=== PATIENT | male | born 1955 | race Caucasian/White ===

== ENCOUNTER 2017-03-28 10:35 | Inpatient (IN) | payer MEDICAID ==
[2017-03-28] VITALS (19 sets, daily range): BP systolic 81–106; BP diastolic 45–69; PULSE 62–125; RESP 13–18; TEMP 98–103.1; O2SAT 95–99
[~2017-03-28] VITALS: Ht 190.5 cm; Wt 80.4 kg
[~2017-03-28 10:35] MED LIST: PERC7.5T13 PO
[2017-03-28] MEDS ORDERED: IBUP-1129 PO (11:17)
[2017-03-28] MEDS ORDERED: metroNIDAZOLE 500 MG INJ 100 ML IV STA (11:26)
[2017-03-28] MEDS ORDERED: AZTREONAM INJ 2,000 MG in SODIUM CHLORIDE 0.9% INJ 100 ML IV STA (11:26)
[2017-03-28] MEDS ORDERED: VANCOMYCIN INJ 1,000 MG in SODIUM CHLOR 0.9% 250 ML INJ 250 ML IV STA (11:26)
--- NOTE | 2017-03-28 11:28 | PD ---
HPI Chief Complaint: Fever Time Seen by Provider: 11:20 Travel History International Travel<30 days: No Contact w/Intl Traveler<30days: No Traveled to known affect area: No History of Present Illness HPI Patient presents with complaints of fever and lower abdominal pain, 7 out of 10. Reports normal urination. Reports a history of stage II rectal cancer in 2011, underwent resection however did not receive any further treatment. Recently had a perforation of his bowels in September with placement of a colostomy bag by Dr. Mendez. Reports at that time he had C. difficile infection with a particular odor, treated with antibiotics which resolved. Patient reports rectal leakage and leakage around his colostomy bag with similar odor. Smokes one pack per day. Denies alcohol or illicit drug use. Allergy to penicillin. PFSH Past Medical History Cancer: Yes (RECTAL dx 2012 states stage 2) Cardiovascular Problems: No Chemotherapy: No Diabetes: No Endocrine: No Gastrointestinal Disorders: Yes (colon tumor, HEP C) Genitourinary: No Hepatitis: Yes (HEPATITIS C ) Hiatal Hernia: No Immune Disorder: No Implanted Vascular Access Dvce: No Musculoskeletal: No Neurologic: No Psychiatric: No Reproductive: No Respiratory: No Radiation Therapy: No Thyroid Disease: No Tetanus Vaccination: < 5 Years Influenza Vaccination: No Past Surgical History Abdominal Surgery: Yes (POLYP REMOVED OCTOBER 2011 ;ESC. RECTAL CANCER/ILEOSTOMY ) Cardiac Surgery: No Ear Surgery: No Endocrine Surgery: No Eye Surgery: No Genitourinary Surgery: No Oral Surgery: No Pacemaker: No Thoracic Surgery: No Other Surgery: Yes (sep 2015 colostomy placed r/t cancer, hx reversal ileostomy ) Social History Alcohol Use: No Tobacco Use: Yes (1 ppd cigs) Substance Use: No Allergies-Medications (Allergen,Severity, Reaction): Coded Allergies: penicillin G (Unverified Allergy, Unknown, unknown reaction, 03/28/17) Reported Meds & Prescriptions Reported Meds & Active Scripts Active Reported Motrin Ib (Ibuprofen) 200 Mg Tablet 800 Mg PO Q12HR PRN Review of Systems General / Constitutional: Positive: Fever Eyes: No: Visual changes HENT: No: Headaches Cardiovascular: No: Chest Pain or Discomfort Respiratory: No: Shortness of Breath Gastrointestinal: Positive: Abdominal Pain Genitourinary: No: Dysuria Musculoskeletal: No: Pain Skin: No Rash Neurologic: No: Weakness Psychiatric: No: Depression Endocrine: No: Polydipsia Hematologic/Lymphatic: No: Easy Bruising Physical Exam Narrative GENERAL: Well-nourished, well-developed patient. SKIN: Focused skin assessment warm/dry. HEAD: Normocephalic. EYES: No scleral icterus. No injection or drainage. NECK: Supple, trachea midline. No JVD or lymphadenopathy. CARDIOVASCULAR: Regular rate and rhythm without murmurs, gallops, or rubs. RESPIRATORY: Breath sounds equal bilaterally. No accessory muscle use. GASTROINTESTINAL: Abdomen soft, diffusely tender bilateral lower quadrants, nondistended. Colostomy is intact without cellulitic changes noted MUSCULOSKELETAL: No cyanosis, or edema. BACK: Nontender without obvious deformity. No CVA tenderness. Data Data Last Documented VS Vital Signs Date Time Temp Pulse Resp B/P (MAP) Pulse Ox O2 Delivery O2 Flow Rate FiO2 03/28/17 14:30 99.1 82 16 100/64 (76) 99 Room Air Orders Orders Complete Blood Count With Diff (03/28/17 11:20) Comprehensive Metabolic Panel (03/28/17 11:20) Lipase (03/28/17 11:20) Lactic Acid (03/28/17 11:20) Prothrombin Time / Inr (Pt) (03/28/17 11:20) Act Partial Throm Time (Ptt) (03/28/17 11:20) Urinalysis - C+S If Indicated (03/28/17 11:20) Ct Abd/Pel W Iv Contrast(Rout) (03/28/17 11:20) Iv Access Insert/Monitor (03/28/17 11:20) Ecg Monitoring (03/28/17 11:20) Oximetry (03/28/17 11:20) Sodium Chloride 0.9% Flush (Ns Flush) (03/28/17 11:30) Electrocardiogram (03/28/17 11:20) Lactic Acid Sepsis Protocol (03/28/17 11:20) Blood Culture (03/28/17 11:20) Acetaminophen (Tylenol) (03/28/17 11:30) Vancomycin Inj (Vancomycin Inj) (03/28/17 11:26) Aztreonam Inj (Azactam Inj) (03/28/17 11:26) Metronidazole 500 Mg Inj (Flagyl 500 Mg (03/28/17 11:26) Sodium Chlor 0.9% 1000 Ml Inj (Ns 1000 M (03/28/17 11:45) Chest, Single Ap (03/28/17 ) Admit Order (Ed Use Only) (03/28/17 ) ^ Saline Lock (03/28/17 14:31) Resp Oxygen Joseph C Titrat 1-4 L (03/28/17 ) Notify Dr: Other (03/28/17 14:31) Vital Signs (Adult) Q4H (03/28/17 14:31) Activity Oob With Assistance (03/28/17 14:31) ^ Saline Lock (03/28/17 14:31) Resp Oxygen Joseph C Titrat 1-4 L (03/28/17 ) Notify Dr: Other (03/28/17 14:31) Ondansetron Inj (Zofran Inj) (03/28/17 14:45) Acetaminophen (Tylenol) (03/28/17 14:45) Acetaminophen Supp (Tylenol Supp) (03/28/17 14:45) Labs Laboratory Tests Test 03/28/17 11:55 03/28/17 12:00 Urine Collection Type CLEAN CATCH Urine Color YELLOW Urine Turbidity CLEAR Urine pH 6.0 Urine Specific [place] 1.014 Urine Protein TRACE mg/dL Urine Glucose (UA) NEG mg/dL Urine Ketones NEG mg/dL Urine Occult Blood SMALL Urine Nitrite NEG Urine Bilirubin NEG Urine Leukocyte Esterase NEG Urine RBC 10-14 /hpf Urine Squamous Epithelial Cells 0-5 /hpf Microscopic Urinalysis Comment CULT NOT INDICATED Urine Collection Time 11:55 White Blood Count 12.3 TH/MM3 Red Blood Count 3.81 MIL/MM3 Hemoglobin 11.1 GM/DL Hematocrit 32.4 % Mean Corpuscular Volume 85.2 FL Mean Corpuscular Hemoglobin 29.0 PG Mean Corpuscular Hemoglobin Concent 34.1 % Red Cell Distribution Width 12.1 % Platelet Count 275 TH/MM3 Mean Platelet Volume 7.1 FL Neutrophils (%) (Auto) 85.6 % Lymphocytes (%) (Auto) 6.8 % Monocytes (%) (Auto) 7.2 % Eosinophils (%) (Auto) 0.0 % Basophils (%) (Auto) 0.4 % Neutrophils # (Auto) 10.6 TH/MM3 Lymphocytes # (Auto) 0.8 TH/MM3 Monocytes # (Auto) 0.9 TH/MM3 Eosinophils # (Auto) 0.0 TH/MM3 Basophils # (Auto) 0.0 TH/MM3 CBC Comment DIFF FINAL Differential Comment Prothrombin Time 13.4 SEC Prothromb Time International Ratio 1.2 RATIO Activated Partial Thromboplast Time 31.3 SEC Blood Urea Nitrogen 15 MG/DL Creatinine 1.10 MG/DL Random Glucose 100 MG/DL Total Protein 7.9 GM/DL Albumin 2.6 GM/DL Calcium Level 8.3 MG/DL Alkaline Phosphatase 55 U/L Aspartate Amino Transf (AST/SGOT) 23 U/L Alanine Aminotransferase (ALT/SGPT) 17 U/L Total Bilirubin 0.4 MG/DL Sodium Level 132 MEQ/L Potassium Level 3.9 MEQ/L Chloride Level 98 MEQ/L Carbon Dioxide Level 27.9 MEQ/L Anion Gap 6 MEQ/L Estimat Glomerular Filtration Rate 69 ML/MIN Lactic Acid Level 1.0 mmol/L Lipase 73 U/L [facility] Medical Decision Making Medical Screen Exam Complete: Yes Emergency Medical Condition: Yes Differential Diagnosis Intestinal perforation, sepsis, UTI, fever unknown origin, rectal cancer progression, e-coli infection Narrative Course Assessment and plan discussed with patient and at bedside. EKG revealed sinus tachycardia rate of 106. Last 72 hours Impressions Abdomen/Pelvis CT 03/28/17 1120 Signed Impressions: Service Date/Time: Tuesday, March 28, 2017 12:43 - CONCLUSION: 1. Mild hydronephrosis with hydroureter and mild distention of the urinary bladder. 2. Wall thickening of the sigmoid colon and rectum with perirectal and pericolonic inflammatory changes. Soft tissue prominence and inflammatory changes in the presacral space. 3. Left lower quadrant ostomy. Lack of oral contrast limits evaluation. Yogi Berry MD Chest X-Ray 03/28/17 0000 Signed Impressions: Service Date/Time: Tuesday, March 28, 2017 14:14 - CONCLUSION: 1. Questionable nodule left apex. Recommend PA and lateral views of the chest. 2. No consolidation. Yogi Berry MD Sepsis Criteria SIRS Criteria (2 or more): Temp > 100.9 or < 96.8, Heart rate over 90, WBC > 35440, < 4000 or > 10% bands Sepsis Criteria (SIRS+source): Infect source susp/known Physician Communication Physician Communication Spoke to Dr Jaylene Tesfaye who is familiar with this patient and Dr. Wood who are both in agreement will admit. Diagnosis Primary Impression: Abdominal pain Additional Impression: Fever Leonardo Ritchie MD Mar 28, 2017 11:28
[2017-03-28] MEDS ORDERED: ACETAMINOPHEN 325 MG TAB PO ONE (11:30)
[2017-03-28] MEDS ORDERED: SODIUM CHLOR 0.9% 1000 ML INJ 1,000 ML IV ONE ×2 (11:45→15:45)
[2017-03-28 12:08] LABS: AUTOMATED NEUTROPHIL # 10.6 TH/MM3 (1.8-7.7); BASOPHIL % 0.4 % (0.0-2.0); HEMATOCRIT 32.4 % (39.0-51.0); LYMPH % 6.8 % (9.0-44.0); LYMPHOCYTE # 0.8 TH/MM3 (1.0-4.8); MEAN CELL VOLUME 85.2 FL (80.0-100.0); MEAN CORPUSCULAR HGB CONC 34.1 % (32.0-36.0); MONO % 7.2 % (0.0-8.0); NEUT % 85.6 % (16.0-70.0); PLATELET COUNT 275 TH/MM3 (150-450); RED BLOOD COUNT 3.81 MIL/MM3 (4.50-5.90); RED CELL DISTRIBUTION WIDTH 12.1 % (11.6-17.2); WHITE BLOOD COUNT 12.3 TH/MM3 (4.0-11.0)
[2017-03-28 12:10] LABS: HEMO FLAGS DIFF FINAL
[2017-03-28] MEDS: SODIUM CHLORIDE 0.9% FLUSH 10 ML FLUSH IV FLUSH PRN ×6 (12:11→17:57)
[2017-03-28 12:20] LABS: CHLORIDE 98 MEQ/L (98-107); POTASSIUM 3.9 MEQ/L (3.5-5.1); SODIUM (NA) 132 MEQ/L (136-145)
[2017-03-28 12:21] LABS: BLOOD, URINE SMALL (NEG); GLUCOSE,URINE NEG (NEG); KETONE, URINE NEG (NEG); NITRITE,URINE NEG (NEG)
[2017-03-28 12:24] LABS: ANION GAP 6 MEQ/L (5-15); BICARBONATE 27.9 MEQ/L (21.0-32.0); BLOOD UREA NITROGEN 15 MG/DL (7-18)
[2017-03-28 12:26] LABS: ALT (GPT) 17 U/L (12-78); AST (GOT) 23 U/L (15-37)
[2017-03-28 12:27] LABS: GLOMERULAR FILTRATION RATE 69 ML/MIN (>89)
[2017-03-28 12:28] LABS: TOTAL BILIRUBIN ADULT 0.4 MG/DL (0.2-1.0)
[2017-03-28 12:29] LABS: ALKALINE PHOSPHATASE 55 U/L (45-117); APTT (PATIENT) 31.3 SEC (24.3-30.1); INTERNATIONAL NORMALIZED RATIO 1.2 RATIO; PROTHROMBIN TIME - PATIENT 13.4 SEC (9.8-11.6)
[2017-03-28] MEDS ORDERED: IOHEXOL 350 MG/ML 10 ML VIAL (for RAD DIAG) IV ONE (12:30)
[2017-03-28 12:35] LABS: METHOD OF COLLECTION CLEAN CATCH; URINE COLOR YELLOW (YELLW/STRAW)
[2017-03-28 12:36] LABS: COMMENT (UR) CULT NOT INDICATED; CULTURE IF INDICATED CULT NOT INDICATED; SQUAMOUS EPITHELIAL CELL URINE 0-5 /hpf (0-5)
--- NOTE | 2017-03-28 13:03 | RADRPT ---
EXAM DATE/TIME: 03/28/2017 12:43 [facility] COMPARISON: No previous studies available for comparison. INDICATIONS : Fever abdominal pain, bowel leakage. IV CONTRAST: 96 cc Omnipaque 350 (iohexol) IV ORAL CONTRAST: No oral contrast ingested. RADIATION DOSE: 7.56 CTDIvol (mGy) MEDICAL HISTORY : Hepatitis C. Carcinoma, rectal. SURGICAL HISTORY : [place] resection, ileostomy. ENCOUNTER: Initial ACUITY: 2 days PAIN SCALE: 6/10 LOCATION: Bilateral lower abdomen. TECHNIQUE: Volumetric scanning of the abdomen and pelvis was performed. Using automated exposure control and ad justment of the mA and/or kV according to patient size, radiation dose was kept as low as reasonably achievable to obtain optimal diagnostic quality images. DICOM format image data is available electro nically for review and comparison. FINDINGS: LOWER LUNGS: The visualized lower lungs are clear. LIVER: Homogeneous density without lesion. There is no dilation of the biliary tree. No calcified gallston es. SPLEEN: Normal size without lesion. PANCREAS: Within normal limits. KIDNEYS: Normal in size and shape. There is mild bilateral hydronephrosis. Hydroureter. ADRENAL GLANDS: Within normal limits. VASCULAR: There is no aortic aneurysm. BOWEL/MESENTERY: Wall thickening of the sigmoid colon with adjacent inflammatory changes. Inflammatory changes in the perirectal fat and presacral space. Left lower quadrant ostomy. Lack of oral contrast limits evaluati on. ABDOMINAL WALL: Within normal limits. RETROPERITONEUM: There is no lymphadenopathy. BLADDER: Mild distention. No wall thickening or mass. REPRODUCTIVE: Within normal limits. INGUINAL: There is no lymphadenopathy or hernia. MUSCULOSKELETAL: Within normal limits for patient age. CONCLUSION: 1. Mild hydronephrosis with hydroureter and mild distention of the urinary bladder. 2. Wall thickening of the sigmoid colon and rectum with perirectal and pericolonic inflammatory johnson es. Soft tissue prominence and inflammatory changes in the presacral space. 3. Left lower quadrant ostomy. Lack of oral contrast limits evaluation. Yogi Berry MD on March 28, 2017 at 12:58 Board Certified Radiologist. This report was verified electronically.
--- NOTE | 2017-03-28 14:30 | RADRPT ---
EXAM DATE/TIME: 03/28/2017 14:14 [facility] COMPARISON: No previous studies available for comparison. INDICATIONS : Cough, congestion, fever since today. MEDICAL HISTORY : None. SURGICAL HISTORY : None. ENCOUNTER: Initial ACUITY: 1 day PAIN SCORE: 0/10 LOCATION: Bilateral chest FINDINGS: A single view of the chest demonstrates the lungs to be symmetrically aerated without evidence of mas s, infiltrate or effusion. Questionable nodule left apex. The cardiomediastinal contours are unremark able. Osseous structures are intact. CONCLUSION: 1. Questionable nodule left apex. Recommend PA and lateral views of the chest. 2. No consolidation. Yogi Berry MD on March 28, 2017 at 14:27 Board Certified Radiologist. This report was verified electronically.
[2017-03-28] MEDS ORDERED: ONDANSETRON HCL 4 MG/2 ML VIAL IV PRN (14:45)
[2017-03-28] MEDS ORDERED: ACETAMINOPHEN 325 MG TAB PO PRN (14:45)
[2017-03-28] MEDS ORDERED: ACETAMINOPHEN 650 MG SUPP PR PRN (14:45)
[2017-03-28] MEDS ORDERED: MORPHINE SULFATE 8 MG/ML INJ IV PUSH PRN (15:45)
--- NOTE | 2017-03-28 15:48 | HHI.HP ---
[facility] John Mendez MD Admission Diagnosis abdominal pain, fever Diagnoses: (1) Sepsis Diagnosis: Principal (2) Febrile illness Diagnosis: Principal (3) Abdominal pain Diagnosis: Principal (4) Colitis Diagnosis: Principal (5) Hyponatremia Diagnosis: Principal (6) Abnormal CT of the abdomen Diagnosis: Principal Chief Complaint: Fever, abdominal pain Travel History International Travel<30 Days: No Contact w/Intl Traveler <30 Da: No Traveled to Known Affected Are: No Sepsis Criteria Criteria Outcome: Meets sepsis criteria History of Present Illness Written by Anthony Burnett, acting as scribe for Dr. Wood on 03/28/17 at 15: 34. 61 year-old male with known history of rectal/colon cancer, hepatitis C, perforated bowel who presented to hospital because of fever and abdominal pain. Patient unfortunate gentleman who has been diagnosed with stage II colon cancer back in 2011 and just had another problem in September of this year where he had a perforated bowel with resection and colostomy at this time. Patient has had significant weight loss from 245 pounds down 265 pounds. Over the last couple days he has noticed that a fever up to 102. He started developing right sided abdominal pain and this morning he had a fever 104 so he came to the hospital for evaluation. Patient had workup done emergency department found to have criteria for sepsis with febrile illness, tachycardia, CT scan indicating wall thickening in the sigmoid colon and rectum with perirectal and pericolic inflammatory changes. Because of those findings is recommended by the ER physician that the patient be admitted for further evaluation and management. Patient does admit to palpable right sided abdominal pain. He has had rectal discharge. He denies any upper respiratory symptoms to include cough, congestion. Patient denies any foreign travel. Review of Systems Constitutional: COMPLAINS OF: Fever, Weight loss Gastrointestinal: COMPLAINS OF: Abdominal pain Except as stated in HPI: all other systems reviewed are Neg Past Family Social History Past Medical History History of stage II colon/rectal cancer Hepatitis C no previous treatment History of perforated bowel status post colostomy Past Surgical History Rectal polyp removal Rectal cancer removal and ileostomy with reversal Colon resection with colostomy September 2015 Reported Medications Reported Meds & Active Scripts Active Reported Motrin Ib (Ibuprofen) 200 Mg Tablet 800 Mg PO Q12HR PRN Allergies: Coded Allergies: penicillin G (Unverified Allergy, Unknown, unknown reaction, 03/28/17) Family History Reviewed and significant for mother at age 60 from stomach cancer, father in his 80s from colon cancer. Brother from brain cancer Social History Patient does live at home with his girlfriend and [id number]. He is on Social Security. No recent travel. He does smoke one pack a cigarettes a day. Denies any alcohol or illicit drugs Physical Exam Vital Signs Vital Signs Date Time Temp Pulse Resp B/P Pulse Ox O2 Delivery O2 Flow Rate FiO2 03/28/17 14:30 99.1 82 16 100/64 99 Room Air 03/28/17 13:30 106 16 106/60 98 Room Air 03/28/17 13:00 102 16 97 Room Air 03/28/17 12:22 103 16 101/61 97 Room Air 03/28/17 11:20 16 97 Room Air 03/28/17 11:15 102.4 110 16 103/62 97 Room Air 03/28/17 11:07 122 16 96 Room Air 03/28/17 11:02 94/58 03/28/17 10:47 103.1 125 16 94/58 96 Physical Exam GENERAL: Well-developed, well-nourished, in no acute distress. alert and orientated HEENT: Head is normocephalic without any lesions or masses noted. Facial features are symmetric. Eyes: Pupils equal round reactive to light. Extraocular muscles are intact. Conjunctivae were clear. Oropharyngeal: Pharynx without any erythema edema. Tongue is midline without deviation. Buccal mucosa is moist without any masses or lesions NECK: Supple without any masses. Trachea midline no deviation. No JVD, no bruits are appreciated CARDIAC: Regular rhythm, regular rate. S1/S2 are heard. No murmurs gallops or rubs. LUNGS: Clear to auscultation bilaterally. No wheeze, rhonchi or rales. No use of accessory muscles on inspiration or expiration. ABDOMEN: Soft, mild tenderness noted in the right abdomen. Colostomy noted in the left lower abdomen. Nondistended. Bowel sounds heard in all 4 quadrants. No organomegaly or masses. Negative rebound, negative guarding EXTREMITIES: No edema, pulses are equal bilaterally. No cyanosis or clubbing NEUROLOGY: Mood and affect appear appropriate. Cranial nerves II through XII grossly intact. Muscle strength 5/5 in upper and lower extremities bilaterally. Deep tendon reflexes are 2+ in upper and lower extremities bilaterally. SKIN: Patient does have redness and softness to the sacral area, is developing pressure area Laboratory Laboratory Tests Test 03/28/17 03/28/17 11:55 12:00 Urine Collection Type CLEAN CATCH Urine Color YELLOW Urine Turbidity CLEAR Urine pH 6.0 Urine Specific [place] 1.014 Urine Protein TRACE Urine Glucose (UA) NEG Urine Ketones NEG Urine Occult Blood SMALL Urine Nitrite NEG Urine Bilirubin NEG Urine Leukocyte Esterase NEG Urine RBC 10-14 Urine Squamous Epithelial 0-5 Cells Microscopic Urinalysis Comment CULT NOT INDICATED Urine Collection Time 11:55 White Blood Count 12.3 Red Blood Count 3.81 Hemoglobin 11.1 Hematocrit 32.4 Mean Corpuscular Volume 85.2 Mean Corpuscular Hemoglobin 29.0 Mean Corpuscular Hemoglobin 34.1 Concent Red Cell Distribution Width 12.1 Platelet Count 275 Mean Platelet Volume 7.1 Neutrophils (%) (Auto) 85.6 Lymphocytes (%) (Auto) 6.8 Monocytes (%) (Auto) 7.2 Eosinophils (%) (Auto) 0.0 Basophils (%) (Auto) 0.4 Neutrophils # (Auto) 10.6 Lymphocytes # (Auto) 0.8 Monocytes # (Auto) 0.9 Eosinophils # (Auto) 0.0 Basophils # (Auto) 0.0 CBC Comment DIFF FINAL Differential Comment Prothrombin Time 13.4 Prothromb Time International 1.2 Ratio Activated Partial 31.3 Thromboplast Time Sodium Level 132 Potassium Level 3.9 Chloride Level 98 Carbon Dioxide Level 27.9 Anion Gap 6 Blood Urea Nitrogen 15 Creatinine 1.10 Estimat Glomerular Filtration 69 Rate Random Glucose 100 Lactic Acid Level 1.0 Calcium Level 8.3 Total Bilirubin 0.4 Aspartate Amino Transf 23 (AST/SGOT) Alanine Aminotransferase 17 (ALT/SGPT) Alkaline Phosphatase 55 Total Protein 7.9 Albumin 2.6 Lipase 73 Date/Time Procedure Status Source Growth 03/28/17 12:05 Aerobic Blood Culture Received Blood Peripheral Pending 03/28/17 12:05 Anaerobic Blood Culture Received Blood Peripheral Pending Result Diagram: 03/28/17 1200 03/28/17 1200 Imaging Last Impressions Abdomen/Pelvis CT 03/28/17 1120 Signed Impressions: Service Date/Time: Tuesday, March 28, 2017 12:43 - CONCLUSION: 1. Mild hydronephrosis with hydroureter and mild distention of the urinary bladder. 2. Wall thickening of the sigmoid colon and rectum with perirectal and pericolonic inflammatory changes. Soft tissue prominence and inflammatory changes in the presacral space. 3. Left lower quadrant ostomy. Lack of oral contrast limits evaluation. Yogi Berry MD Chest X-Ray 03/28/17 0000 Signed Impressions: Service Date/Time: Tuesday, March 28, 2017 14:14 - CONCLUSION: 1. Questionable nodule left apex. Recommend PA and lateral views of the chest. 2. No consolidation. Yogi Berry MD Septic Shock Reassessment Heart: Regular rate and rhythm Lungs: Clear Skin: Warm Peripheral Pulses: Bounding Right Radial Bounding Left Radial Assessment and Plan Problem List: (1) Sepsis ICD Code: A41.9 Status: Acute Plan: Patient is criteria on admission with febrile illness, tachycardia, CT scan with colitis CT scan does indicate all thickening in sigmoid colon and rectum. Patient was given Azactam and vancomycin emergency department We'll continue Cipro and Flagyl Continue to follow blood cultures Continue IV fluids (2) Colitis ICD Code: K52.9 Status: Acute Plan: Patient with history of colon/rectal cancer. Recent colostomy and colectomy in September of this year due to possible perforation Antibiotics as above Colorectal specialist has been consulted for recommendations (3) Hyponatremia ICD Code: E87.1 Status: Acute Plan: Unknown etiology, could be from high output colostomy, malignancy Continue IV fluids and monitor sodium level (4) Abnormal CT of the abdomen ICD Code: R93.5 Status: Acute Plan: CT also indicating hydronephrosis, hydroureter, distention of the bladder. Bladder scan as needed Patient does have normal renal functions and good urinary output with at least 600 cc since being here in the emergency department. Clinically the patient does not exhibit any signs of distress or obstruction. CT scan didn't identify any obstructive process. Patient to follow-up outpatient for further evaluation Assessment and Plan DVT prevention Lovenox Code Status No code Discussed Condition With Patient, nursing staff, ER physician Physician Certification 2 Midnight Certification Type: Admission for Inpatient Services Order for Inpatient Services The services are ordered in accordance with Medicare regulations or non- Medicare payer requirements, as applicable. In the case of services not specified as inpatient-only, they are appropriately provided as inpatient services in accordance with the 2-midnight benchmark. Estimated LOS (days): 2 days is the estimated time the patient will need to remain in the hospital, assuming treatment plan goals are met and no additional complications. Post-Hospital Plan: Home Medical Decision Making Impression and Plan This note was transcribed by adam Marie. I, Dr. Temitope Wood personally performed the history, physical exam, and medical decision making; and confirmed the accuracy of the information in the transcribed note. CT reviewed by me. The exam, history, and the medical decision-making described in the above note were completed with the assistance of the mid-level provider. I reviewed and agree with the findings presented. I attest that I had a [id number] encounter with the patient on the same day, and personally performed and documented my assessment and findings in the medical record. Authenticated by Dr. Temitope Wood on 03/28/17 at 15:50. Problem Qualifiers (1) Abdominal pain: Qualified Code: R10.30 - Lower abdominal pain Anthony Burnett Mar 28, 2017 15:48 Temitope Wood MD Mar 28, 2017 15:50
[2017-03-28] MEDS: SODIUM CHLOR 0.9% 1000 ML INJ 1,000 ML IV SCH (16:23)
[2017-03-28] MEDS: ENOXAPARIN SODIUM 40 MG/0.4 ML SYRINGE SQ SCH (16:43)
[2017-03-28] MEDS: CIPROFLOXACIN 400 MG PREMIX 200 ML IV SCH (16:43)
[2017-03-28] MEDS: PANTOPRAZOLE SOD 40 MG DELAYED RELEASE TAB PO SCH (16:44)
[2017-03-28] MEDS ORDERED: SODIUM CHLORID 0.9% 500 ML INJ 500 ML IV ONE (17:30)
--- NOTE | 2017-03-28 19:16 | MB ---
cc: MARIA TERESA MANCILLA M.D. DATE OF CONSULTATION March 28, 2017 CHIEF COMPLAINT Sepsis and abdominal pain. HISTORY OF PRESENT ILLNESS The patient is well-known to my partner, Dr. Mendez. He underwent a low anterior resection with diverting ileostomy and subsequent reanastomosis 4 or 5 years ago and then had what appears to be either recurrence of either a polyp or cancer. He underwent a diverting colostomy in October of this year, subsequent to a perforated viscus. He has not been seen in the last few months by Dr. Mendez. He began having more abdominal pain as well as a fever to 103. Pain was worse on the right than the left. He was seen in the emergency department at [facility] and CT scan revealed some inflammation in the pelvic area but no sign of any free fluid or abscess. Per Dr. Mendez, this is consistent with his previous CT scan. Urinalysis was negative and chest Xray showed no consolidation or other signs of pneumonia. PAST MEDICAL HISTORY 1. Rectal cancer. 2. Hepatitis C. PAST SURGICAL HISTORY 1. Transrectal polypectomy. 2. Low anterior resection with ileostomy. 3. Ileostomy reversal. 4. Colon resection with colostomy. ALLERGIES PENICILLIN. MEDICATIONS Motrin. SOCIAL HISTORY The patient smokes about one pack per day. He denies alcohol or illicit drug. REVIEW OF SYSTEMS The review of systems was positive for fever, abdominal pain, weight loss. Negative for chest pain, shortness of breath, difficulty with mood or mentation, difficulty with ambulation, constipation, diarrhea, melena or hematochezia. LABORATORY DATA On evaluation showed a white count of 12.3, hemoglobin 11.1, platelets of 275. Chemistry, sodium 132, potassium 3.9, chloride 98, bicarb 27.9, BUN is 15, creatinine is 1.1, glucose is 100. Coags show a PT of 13.4, INR of 1.2, PTT of 31.3. Urinalysis is negative. PHYSICAL EXAMINATION GENERAL: Reveals an alert male who appears comfortable. NEURO: Neuro is grossly intact. SKIN: Skin is warm and dry. HEENT: Head is normocephalic, atraumatic. CARDIOVASCULAR: Regular rate. CHEST: Breathing is symmetric bilaterally and nonlabored. ABDOMEN: Soft, nondistended. He has a stoma in the left lower quadrant. He is really not tender to palpation on my examination. ANAL EXAMINATION: External anal exam showed some mucoid discharge on the anal verge. Digital rectal examination is tender. There is a very short stump. There is no palpable bogginess or other significant signs of infection. IMPRESSION Sepsis. It is difficult to know what would have caused this patient's sepsis. According to Dr. Mendez his previous CT scan showed much the same picture. Therefore, we will have to watch him closely. He is being transferred to the Intensive Care Unit for close monitoring and fluid rehydration. We will keep a very close eye on him and Dr. Mendez has at least considered possibly removing his rectal stump to see if he can make him more comfortable. We will continue to follow closely with you. Thank you very much for your kind referral. MD EMRI Romero/SHELBY /5:55 PM /7:04 PM FRED
[2017-03-28] MEDS: HYDROCORTISONE SOD SUCCINATE 100 MG VIAL IV PUSH SCH (20:06)
[2017-03-28] MEDS: metroNIDAZOLE 500 MG INJ 100 ML IV SCH (20:14)
[2017-03-28] MEDS: ACETAMINOPHEN/HYDROcodone 325 MG/7.5 MG TAB PO PRN (20:14)
[2017-03-28] MEDS ORDERED: CHLORHEXIDINE GLUCONATE 2 % 1 PACK (2 CLOTHS)(taper/protocol) TOPICAL SCH (23:40)
[2017-03-28] MEDS ORDERED: CHLORHEXIDINE GLUCONATE 2 % 1 PACK (2 CLOTHS)(extra cloths) TOPICAL PRN (23:45)
[2017-03-29] VITALS (28 sets, daily range): BP systolic 80–113; BP diastolic 46–73; PULSE 50–78; RESP 11–26; TEMP 97.7–98.4; O2SAT 94–98
[2017-03-29] MEDS: SODIUM CHLOR 0.9% 1000 ML INJ 1,000 ML IV SCH ×2 (01:07→19:32)
[2017-03-29] MEDS: ACETAMINOPHEN/HYDROcodone 325 MG/7.5 MG TAB PO PRN ×4 (01:07→19:33)
[2017-03-29] MEDS: CHLORHEXIDINE GLUCONATE 2 % 1 PACK (2 CLOTHS)(taper/protocol) TOPICAL SCH (01:07)
[2017-03-29] MEDS: CIPROFLOXACIN 400 MG PREMIX 200 ML IV SCH ×2 (04:37→16:00)
[2017-03-29] MEDS: metroNIDAZOLE 500 MG INJ 100 ML IV SCH ×2 (04:38→19:34)
[2017-03-29 06:13] LABS: AUTOMATED NEUTROPHIL # 7.7 TH/MM3 (1.8-7.7); BASOPHIL % 0.1 % (0.0-2.0); HEMATOCRIT 30.9 % (39.0-51.0); HEMO FLAGS DIFF FINAL; LYMPH % 8.7 % (9.0-44.0); LYMPHOCYTE # 0.8 TH/MM3 (1.0-4.8); MEAN CELL VOLUME 86.1 FL (80.0-100.0); MEAN CORPUSCULAR HEMOGLOBIN 28.3 PG (27.0-34.0); MEAN CORPUSCULAR HGB CONC 32.8 % (32.0-36.0); MONO % 7.8 % (0.0-8.0); NEUT % 83.4 % (16.0-70.0); PLATELET COUNT 296 TH/MM3 (150-450); RED BLOOD COUNT 3.59 MIL/MM3 (4.50-5.90); RED CELL DISTRIBUTION WIDTH 12.5 % (11.6-17.2); WHITE BLOOD COUNT 9.2 TH/MM3 (4.0-11.0)
[2017-03-29 06:29] LABS: POTASSIUM 4.2 MEQ/L (3.5-5.1)
[2017-03-29 06:35] LABS: BICARBONATE 26.6 MEQ/L (21.0-32.0)
--- NOTE | 2017-03-29 07:53 | HHI.PR ---
Subjective Remarks patient seen in follow up for sepsis and dehydration with hypotension BP better on steroids UOP is adequate CRS consult appreciated Objective Vitals Vital Signs Date Time Temp Pulse Resp B/P Pulse Ox O2 Delivery O2 Flow Rate FiO2 03/29/17 06:00 58 03/29/17 06:00 58 14 95/65 97 03/29/17 05:00 62 15 101/62 97 03/29/17 04:15 98.3 03/29/17 04:00 60 03/29/17 04:00 60 12 91/66 96 03/29/17 03:00 66 16 94/59 97 03/29/17 02:00 66 03/29/17 02:00 66 16 93/53 98 03/29/17 01:00 62 14 87/57 96 03/29/17 00:00 72 03/29/17 00:00 72 22 102/62 97 03/28/17 23:21 98.3 64 13 98/67 97 03/28/17 23:20 95 21 03/28/17 23:11 69 03/28/17 22:55 98.1 62 17 88/58 97 Room Air 03/28/17 21:46 76 16 94/59 97 Room Air 03/28/17 21:20 98.3 77 17 100/60 97 Room Air 03/28/17 20:10 80 18 95/69 96 Room Air 03/28/17 19:00 98.0 77 17 90/62 98 Room Air 03/28/17 18:00 76 16 100/66 98 Room Air 03/28/17 17:14 90 16 82/45 99 Room Air 03/28/17 17:00 83 16 98 Room Air 03/28/17 16:50 73 16 91/63 98 Room Air 03/28/17 16:00 72 16 81/49 97 Room Air 03/28/17 15:00 86 16 Room Air 03/28/17 14:30 99.1 82 16 100/64 99 Room Air 03/28/17 13:30 106 16 106/60 98 Room Air 03/28/17 13:00 102 16 97 Room Air 03/28/17 12:22 103 16 101/61 97 Room Air 03/28/17 11:20 16 97 Room Air 03/28/17 11:15 102.4 110 16 103/62 97 Room Air 03/28/17 11:07 122 16 96 Room Air 03/28/17 11:02 94/58 03/28/17 10:47 103.1 125 16 94/58 96 I/O 03/28/17 03/28/17 03/28/17 03/29/17 03/29/17 03/29/17 06:59 14:59 22:59 06:59 14:59 22:59 Intake Total 1200 ml 1660 ml 2196 ml Output Total 600 ml 2050 ml 1250 ml Balance 600 ml -390 ml 946 ml Intake Oral 360 ml 1440 ml IV Total 1200 ml 1300 ml 756 ml Output Urine Total 600 ml 2050 ml 850 ml Stool Total 400 ml # Voids 3 Result Diagram: 03/29/17 0608 03/29/17 0608 Objective Remarks GENERAL: This is a malnourished, well-developed patient, in no apparent distress. CARDIOVASCULAR: Regular rate and rhythm without murmurs, gallops, or rubs. RESPIRATORY: Clear to auscultation. Breath sounds equal bilaterally. No wheezes , rales, or rhonchi. GASTROINTESTINAL: left ostomy, Abdomen soft, non-tender, nondistended. Normal active bowel sounds MUSCULOSKELETAL: Extremities without clubbing, cyanosis, or edema. NEURO: Alert & Oriented x4 to person, place, time, situation. Moves all ext x4 A/P Problem List: (1) Sepsis ICD Code: A41.9 Status: Acute Plan: secondary to colitis, fever and tachycardia resolving continue Cipro and Flagyl follow blood cultures Continue IV fluids (2) Colitis ICD Code: K52.9 Status: Acute Plan: Patient with history of colon/rectal cancer. Recent colostomy and colectomy in September of this year due to possible perforation CRS consult appreciated (3) Hyponatremia ICD Code: E87.1 Status: Resolved Plan: resolved (4) Abnormal CT of the abdomen ICD Code: R93.5 Status: Acute Plan: CT also indicating hydronephrosis, hydroureter, distention of the bladder. Patient with good urinary output Temitope Wood MD Mar 29, 2017 07:52
[2017-03-29] MEDS: PANTOPRAZOLE SOD 40 MG DELAYED RELEASE TAB PO SCH (09:00)
--- NOTE | 2017-03-29 15:23 | EKG ---
Date Performed: 03/28/2017 Time Performed: 11:43:14 PTAGE: 61 years EKG: SINUS TACHYCARDIA ABNORMAL RHYTHM ECG Compared to PREVIOUS TRACING , heart rate is faster, otherwise no significant change. PREVIOUS TRACIN 09/24/2011 09.27 DOCTOR: French Mayen Interpretating Date/Time 03/29/2017 15:21:37
[2017-03-29] MEDS: ENOXAPARIN SODIUM 40 MG/0.4 ML SYRINGE SQ SCH (16:00)
[2017-03-29] MEDS: HYDROCORTISONE SOD SUCCINATE 100 MG VIAL IV PUSH SCH (19:32)
[2017-03-29] MEDS: SODIUM CHLORIDE 0.9% FLUSH 10 ML FLUSH IV FLUSH PRN (19:33)
[2017-03-30] VITALS (28 sets, daily range): BP systolic 83–122; BP diastolic 48–74; PULSE 48–84; RESP 11–23; TEMP 95.7–98.6; O2SAT 97–98
[2017-03-30] MEDS: CIPROFLOXACIN 400 MG PREMIX 200 ML IV SCH (03:02)
[2017-03-30] MEDS: CHLORHEXIDINE GLUCONATE 2 % 1 PACK (2 CLOTHS)(taper/protocol) TOPICAL SCH (03:03)
[2017-03-30] MEDS: metroNIDAZOLE 500 MG INJ 100 ML IV SCH (04:47)
[2017-03-30] MEDS: ACETAMINOPHEN/HYDROcodone 325 MG/7.5 MG TAB PO PRN (04:48)
[2017-03-30] MEDS: SODIUM CHLOR 0.9% 1000 ML INJ 1,000 ML IV SCH ×2 (07:39→16:55)
[2017-03-30] MEDS: PANTOPRAZOLE SOD 40 MG DELAYED RELEASE TAB PO SCH (09:18)
[2017-03-30] MEDS: HYDROCORTISONE SOD SUCCINATE 100 MG VIAL IV PUSH SCH (09:19)
--- NOTE | 2017-03-30 10:05 | HHI.PR ---
Subjective Remarks Seen today in follow-up for sepsis with known colorectal cancer. Blood pressure improved however patient is still on IV steroids. Early growth found in 1/4 bottle of blood cultures. Fever improves, heart rate improved Plan of care discussed with dietitian and ICU nursing team. Objective Vitals Vital Signs Date Time Temp Pulse Resp B/P (MAP) Pulse Ox O2 Delivery O2 Flow Rate FiO2 03/30/17 08:18 97 21 03/30/17 08:10 97.6 56 16 107/73 (84) 98 03/30/17 06:12 54 03/30/17 06:12 54 15 97/59 (72) 03/30/17 05:12 50 12 86/59 (68) 03/30/17 04:12 97.8 52 12 101/57 (72) 03/30/17 04:00 48 03/30/17 03:12 50 11 91/54 (66) 03/30/17 02:12 52 11 91/52 (65) 03/30/17 02:00 52 03/30/17 01:12 48 12 83/48 (60) 03/30/17 00:12 98.2 50 12 87/62 (70) 03/30/17 00:12 50 03/29/17 23:12 50 11 95/63 (74) 03/29/17 22:12 64 19 95/56 (69) 03/29/17 22:12 64 03/29/17 21:12 58 12 80/46 (57) 03/29/17 20:20 96 21 03/29/17 20:12 60 03/29/17 20:12 98.4 60 16 100/58 (72) 03/29/17 19:12 64 19 101/65 (77) 03/29/17 18:03 70 18 100/61 (74) 03/29/17 18:03 70 03/29/17 17:00 97.7 78 19 96/66 (76) 03/29/17 16:00 70 03/29/17 16:00 70 20 98/65 (76) 96 03/29/17 15:00 72 15 90/52 (65) 03/29/17 14:00 68 15 109/65 (80) 03/29/17 14:00 68 03/29/17 13:00 74 16 105/65 (78) 03/29/17 12:00 98.1 76 20 103/68 (80) 94 03/29/17 11:00 58 16 113/73 (86) 03/29/17 10:04 58 15 97/55 (69) I/O 03/29/17 03/29/17 03/29/17 03/30/17 03/30/17 03/30/17 07:00 15:00 23:00 07:00 15:00 23:00 Intake Total 2196 ml 1772 ml 1361 ml 873 ml 1000 ml Output Total 1250 ml 200 ml 150 ml 200 ml Balance 946 ml 1772 ml 1161 ml 723 ml 800 ml Intake Oral 1440 ml 1000 ml 360 ml IV Total 756 ml 772 ml 1001 ml 873 ml 1000 ml Output Urine Total 850 ml 200 ml 150 ml 200 ml Stool Total 400 ml # Voids 5 # Bowel Movements 1 1 Result Diagram: 03/29/17 0608 03/29/17 0608 Objective Remarks GENERAL: This is a malnourished, well-developed patient, in no apparent distress. CARDIOVASCULAR: Regular rate and rhythm without murmurs, gallops, or rubs. RESPIRATORY: Clear to auscultation. Breath sounds equal bilaterally. No wheezes , rales, or rhonchi. GASTROINTESTINAL: left ostomy, Abdomen soft, non-tender, nondistended. Normal active bowel sounds MUSCULOSKELETAL: Extremities without clubbing, cyanosis, or edema. NEURO: Alert & Oriented x4 to person, place, time, situation. Moves all ext x4 A/P Problem List: (1) Sepsis ICD Code: A41.9 - Sepsis, unspecified organism Status: Acute Plan: Possibly secondary to colitis, fever and tachycardia resolved continue empiric oral Cipro and Flagyl follow blood cultures DC of steroids (2) Colitis ICD Code: K52.9 - Noninfective gastroenteritis and colitis, unspecified Status: Acute Plan: Discussed with Dr. Mendez this morning, patient will need further surgery at some point, patient is aware but would not like this done at this time. Patient with history of colon/rectal cancer. Recent colostomy and colectomy in September of this year due to possible perforation CRS consult appreciated (3) Abnormal CT of the abdomen ICD Code: R93.5 - Abnormal findings on diagnostic imaging of other abdominal regions, including retroperitoneum Status: Acute Plan: CT also indicating hydronephrosis, hydroureter, distention of the bladder. Patient with good urinary output Discharge Planning Change antibiotics to oral, DC steroids Possibly in a.m. Blood cultures pending Temitope Wood MD Mar 30, 2017 10:05
[2017-03-30] MEDS: metroNIDAZOLE 500 MG TAB PO SCH ×2 (15:08→22:06)
[2017-03-30] MEDS: ENOXAPARIN SODIUM 40 MG/0.4 ML SYRINGE SQ SCH (15:08)
[2017-03-30] MEDS: CIPROFLOXACIN 500 MG TAB PO SCH (22:06)
[2017-03-31] VITALS: BP 103/65; PULSE 73; RESP 18; TEMP 96.8; O2SAT 96
[2017-03-31] MEDS: CHLORHEXIDINE GLUCONATE 2 % 1 PACK (2 CLOTHS)(taper/protocol) TOPICAL SCH (04:00)
[2017-03-31] MEDS: SODIUM CHLOR 0.9% 1000 ML INJ 1,000 ML IV SCH (04:04)
[2017-03-31] MEDS: metroNIDAZOLE 500 MG TAB PO SCH (05:22)
[2017-03-31] MEDS: ACETAMINOPHEN/HYDROcodone 325 MG/7.5 MG TAB PO PRN (05:31)
[2017-03-31 08:00] VITALS: BP 119/84; PULSE 89; RESP 18; TEMP 97.9; O2SAT 98
[2017-03-31] MEDS: PANTOPRAZOLE SOD 40 MG DELAYED RELEASE TAB PO SCH (09:58)
[2017-03-31] MEDS: CIPROFLOXACIN 500 MG TAB PO SCH (09:58)
[2017-03-31] MEDS ORDERED: PANT40TA3 PO (10:22)
[2017-03-31] MEDS ORDERED: METR-1 PO (10:22)
[2017-03-31] MEDS ORDERED: CIPR-9 PO (10:22)
--- NOTE | 2017-03-31 10:22 | HHI.DCPOC ---
Discharge Care Plan Diagnosis: (1) Colitis Goals to Promote Your Health * To prevent worsening of your condition and complications * To maintain your health at the optimal level Directions to Meet Your Goals Take your medications as prescribed Follow your dietary instruction Follow activity as directed Keep your appointments as scheduled Take your immunizations and boosters as scheduled If your symptoms worsen call your PCP, if no PCP go to Urgent Care Center or Emergency Room Smoking is Dangerous to Your Health. Avoid second hand smoke Call the 24-hour hour crisis hotline for domestic abuse at Temitope Wood MD Mar 31, 2017 10:22
[2017-03-31] MEDS ORDERED: HYDR-3580 PO (10:25)
--- NOTE | 2017-03-31 10:26 | HHI.DS ---
Discharge Summary Admission Date Mar 28, 2017 at 14:35 Discharge Date: Mar 31, 2017 Admitting Diagnosis abdominal pain, fever (1) Sepsis ICD Code: A41.9 - Sepsis, unspecified organism Status: Acute (2) Colitis ICD Code: K52.9 - Noninfective gastroenteritis and colitis, unspecified Status: Acute (3) Abnormal CT of the abdomen ICD Code: R93.5 - Abnormal findings on diagnostic imaging of other abdominal regions, including retroperitoneum Status: Acute Procedures none Brief History - From Admission Written by Anthony Burnett, acting as scribe for Dr. Wood on 03/28/17 at 15: 34. 61 year-old male with known history of rectal/colon cancer, hepatitis C, perforated bowel who presented to hospital because of fever and abdominal pain. Patient unfortunate gentleman who has been diagnosed with stage II colon cancer back in 2011 and just had another problem in September of this year where he had a perforated bowel with resection and colostomy at this time. Patient has had significant weight loss from 245 pounds down 265 pounds. Over the last couple days he has noticed that a fever up to 102. He started developing right sided abdominal pain and this morning he had a fever 104 so he came to the hospital for evaluation. Patient had workup done emergency department found to have criteria for sepsis with febrile illness, tachycardia, CT scan indicating wall thickening in the sigmoid colon and rectum with perirectal and pericolic inflammatory changes. Because of those findings is recommended by the ER physician that the patient be admitted for further evaluation and management. Patient does admit to palpable right sided abdominal pain. He has had rectal discharge. He denies any upper respiratory symptoms to include cough, congestion. Patient denies any foreign travel. CBC/BMP: 03/29/17 0608 03/29/17 0608 Significant Findings Laboratory Tests Test 03/28/17 11:55 03/28/17 12:00 03/29/17 00:00 03/29/17 06:08 Urine Occult Blood SMALL (NEG) Urine RBC 10-14 /hpf (0-3) White Blood Count 12.3 TH/MM3 (4.0-11.0) Red Blood Count 3.81 MIL/MM3 (4.50-5.90) 3.59 MIL/MM3 (4.50-5.90) Hemoglobin 11.1 GM/DL (13.0-17.0) 10.1 GM/DL (13.0-17.0) Hematocrit 32.4 % (39.0-51.0) 30.9 % (39.0-51.0) Neutrophils (%) (Auto) 85.6 % (16.0-70.0) 83.4 % (16.0-70.0) Lymphocytes (%) (Auto) 6.8 % (9.0-44.0) 8.7 % (9.0-44.0) Neutrophils # (Auto) 10.6 TH/MM3 (1.8-7.7) Lymphocytes # (Auto) 0.8 TH/MM3 (1.0-4.8) 0.8 TH/MM3 (1.0-4.8) Prothrombin Time 13.4 SEC (9.8-11.6) Activated Partial Thromboplast Time 31.3 SEC (24.3-30.1) Albumin 2.6 GM/DL (3.4-5.0) Calcium Level 8.3 MG/DL (8.5-10.1) 7.9 MG/DL (8.5-10.1) Sodium Level 132 MEQ/L (136-145) Estimat Glomerular Filtration Rate 69 ML/MIN (>89) 69 ML/MIN (>89) Random Glucose 171 MG/DL (74-106) Anion Gap 4 MEQ/L (5-15) Test 03/29/17 23:40 Erythrocyte Sedimentation Rate 84 mm/hr (0-20) Imaging Last Impressions Abdomen/Pelvis CT 03/28/17 1120 Signed Impressions: Service Date/Time: Tuesday, March 28, 2017 12:43 - CONCLUSION: 1. Mild hydronephrosis with hydroureter and mild distention of the urinary bladder. 2. Wall thickening of the sigmoid colon and rectum with perirectal and pericolonic inflammatory changes. Soft tissue prominence and inflammatory changes in the presacral space. 3. Left lower quadrant ostomy. Lack of oral contrast limits evaluation. Yogi Berry MD Chest X-Ray 03/28/17 0000 Signed Impressions: Service Date/Time: Tuesday, March 28, 2017 14:14 - CONCLUSION: 1. Questionable nodule left apex. Recommend PA and lateral views of the chest. 2. No consolidation. Yogi Berry MD PE at Discharge GENERAL: This is a malnourished, well-developed patient, in no apparent distress. CARDIOVASCULAR: Regular rate and rhythm without murmurs, gallops, or rubs. RESPIRATORY: Clear to auscultation. Breath sounds equal bilaterally. No wheezes , rales, or rhonchi. GASTROINTESTINAL: left ostomy, Abdomen soft, non-tender, nondistended. Normal active bowel sounds MUSCULOSKELETAL: Extremities without clubbing, cyanosis, or edema. NEURO: Alert & Oriented x4 to person, place, time, situation. Moves all ext x4 Pt update on day of discharge Patient seen today in follow-up for colitis with CR cancer. No further issues Sepsis resolved Discussed with Santa RN and patient regarding discharge planning Hospital Course this patient is a 61-year-old gentleman with known history of colorectal cancer. Patient did come in quite dehydrated with evidence of sepsis and probable colitis. He improved with empiric antibiotics and he was tolerating his diet. He is seen by nutrition supplementation was recommended due to malnutrition and unexplained weight loss in the setting of known malignancy. Pt Condition on Discharge: Good Discharge Disposition: Discharge Home Discharge Time: > 30 minutes Discharge Instructions DIET: Follow Instructions for: As Tolerated, No Restrictions Activities you can perform: Regular-No Restrictions New Medications: Ciprofloxacin (Cipro) 500 Mg Tab 500 MG PO Q12HR for Infection, #22 TAB Metronidazole (Flagyl) 500 Mg Tab 500 MG PO Q8HR for Infection, #12 TAB Pantoprazole (Pantoprazole) 40 Mg Tab 40 MG PO DAILY for gi, #14 TAB Discontinued Medications: Ibuprofen (Motrin Ib) 200 Mg Tablet 800 MG PO Q12HR PRN for PAIN SCALE 1 TO 10 Temitope Wood MD Mar 31, 2017 10:26
== END 2017-03-31 12:45 | disposition home or self-care (01) | DRG 872 ==
LOC: PHED 10:35 → PHEDA 14:35 → PHICU 23:17 → PH3A 03-30 19:38
PROVIDERS: ADMIT Hospitalist; ATTEND Hospitalist
DX: A41.9 Sepsis, unspecified organism (principal); E46 Unspecified protein-calorie malnutrition; E87.1 Hypo-osmolality and hyponatremia; N13.30 Unspecified hydronephrosis; K52.9 Noninfective gastroenteritis and colitis, unspecified; R50.9 Fever, unspecified; Z85.048 Personal history of other malignant neoplasm of rectum, rectosigmoid junction, and anus; B19.20 Unspecified viral hepatitis C without hepatic coma; E86.0 Dehydration; F17.210 Nicotine dependence, cigarettes, uncomplicated
CPT/HCPCS: 71010; 74177; 80048; 80053; 81001; 83605; 83690; 85025; 85610; 85652; 85730; 87040; 87077; 87185; 87186; 87205; 87641; 93005; 96365; 96367; J0744; J1650; J1720; J3370; J7030; J7040; J7050; Q9967

== ENCOUNTER 2017-05-24 16:17 | Inpatient (IN) | payer MEDICAID ==
[~2017-05-24] VITALS: Ht 190.5 cm; Wt 71.1 kg
[~2017-05-24 16:17] MED LIST changes: +CIPR-9 PO; +HYDR-3580 PO; +IBUP-1129 PO; +METR-1 PO; +PANT40TA3 PO; -PERC7.5T13 PO
[2017-05-24 16:20] VITALS: BP 133/80; PULSE 88; RESP 18; TEMP 98.5; O2SAT 95
--- NOTE | 2017-05-24 16:53 | PD ---
Physical Exam Time Seen by Provider: 16:51 Narrative 61-year-old male sent by Dr. Monahan for possible blockage. Has colon cancer. He has a colostomy and he only has fluid draining into it. No solid stool. Reports vomiting. Denies fevers. Patient seen in triage. Vital signs reviewed. Patient awaiting bed placement. Data Data Last Documented VS Vital Signs Date Time Temp Pulse Resp B/P (MAP) Pulse Ox O2 Delivery O2 Flow Rate FiO2 05/24/17 16:20 98.5 88 18 133/80 (97) 95 MDM Supervised Visit with ESTER: Asiya Obrien May 24, 2017 16:53
[2017-05-24 18:00] VITALS: RESP 22; O2SAT 95
[2017-05-24] MEDS ORDERED: SODIUM CHLOR 0.9% 1000 ML INJ 1,000 ML IV SCH (18:12)
[2017-05-24] MEDS ORDERED: ONDANSETRON HCL 4 MG/2 ML VIAL IVP ONE (18:15)
[2017-05-24] MEDS ORDERED: MORPHINE SULFATE 4 MG/ML INJ IV PUSH ONE ×2 (18:15→21:30)
[2017-05-24] MEDS ORDERED: SODIUM CHLORIDE 0.9% FLUSH 10 ML FLUSH IV FLUSH PRN ×2 (18:15→21:45)
--- NOTE | 2017-05-24 18:21 | PD ---
HPI Chief Complaint: GI Complaint Time Seen by Provider: 17:56 Travel History International Travel<30 days: No Contact w/Intl Traveler<30days: No Traveled to known affect area: No History of Present Illness HPI 61-year-old male presents to the emergency department for evaluation of abdominal pain that started 4 days ago. Patient reports mostly right-sided abdominal pain. Significant history of colon/rectal cancer, hepatitis C, perforated bowel. Patient states that he had a tumor removed which was low- grade carcinoma. He did not have to undergo chemotherapy or radiation because the entire tumor was obtained. However, September this year, he had perforated bowel is noted that he had a reoccurring tumor at that time. He states he is due to have surgery by Dr. Mendez on 06/01 for the tumor removal. However, for the past 4 days, he has had significant right-sided abdominal pain. He has a colostomy. He states that he has not had output for the past 4-5 days. However , he is now obtaining output. He denies any fevers, but does state he has chills. No chest pain or shortness of breath. He relates to Dr. Mendez's partner, Dr. Monahan, who instructed him to come the emergency department. PFSH Past Medical History Autoimmune Disease: No Anxiety: No Depression: No Cancer: Yes (RECTAL dx 2012 states stage 2) Cardiovascular Problems: No Chemotherapy: No Diabetes: No Diminished Hearing: No Endocrine: No Gastrointestinal Disorders: Yes (colon tumor, HEP C) Genitourinary: No Hepatitis: Yes (HEPATITIS C ) Hiatal Hernia: No Immune Disorder: No Implanted Vascular Access Dvce: No Musculoskeletal: No Neurologic: No Psychiatric: No Reproductive: No Respiratory: No Radiation Therapy: No Thyroid Disease: No Influenza Vaccination: No Past Surgical History Abdominal Surgery: Yes (POLYP REMOVED OCTOBER 2011 ;ESC. RECTAL CANCER/COLOSTOMY ) Cardiac Surgery: No Ear Surgery: No Endocrine Surgery: No Eye Surgery: No Genitourinary Surgery: No Oral Surgery: No Pacemaker: No Thoracic Surgery: No Other Surgery: Yes (sep 2015 colostomy placed r/t cancer, hx reversal ileostomy ) Social History Alcohol Use: No Tobacco Use: Yes (1 ppd cigs) Substance Use: No Allergies-Medications (Allergen,Severity, Reaction): Coded Allergies: penicillin G (Unverified Allergy, Unknown, unknown reaction, 05/24/17) Reported Meds & Prescriptions Reported Meds & Active Scripts Active Hydrocodone-Acetaminophen 7.5-325 mg Tab 1 Tab PO Q4H PRN Review of Systems Except as stated in HPI: all other systems reviewed are Neg Physical Exam Narrative GENERAL: Well-nourished, well-developed male patient, afebrile. SKIN: Focused skin assessment warm/dry. HEAD: Normocephalic. Atraumatic. EYES: No scleral icterus. No injection or drainage. NECK: Supple, trachea midline. No JVD or lymphadenopathy. CARDIOVASCULAR: Regular rate and rhythm without murmurs, gallops, or rubs. RESPIRATORY: Breath sounds equal bilaterally. No accessory muscle use. Lungs sounds are clear to auscultation. GASTROINTESTINAL: Abdomen nondistended. Patient has tenderness to palpation over right abdomen. Left colostomy is noted. MUSCULOSKELETAL: No cyanosis, or edema. BACK: Nontender without obvious deformity. No CVA tenderness. Data Data Last Documented VS Vital Signs Date Time Temp Pulse Resp B/P (MAP) Pulse Ox O2 Delivery O2 Flow Rate FiO2 05/24/17 19:30 67 18 127/76 (93) 98 Room Air 05/24/17 16:20 98.5 Orders Orders Complete Blood Count With Diff (05/24/17 18:12) Comprehensive Metabolic Panel (05/24/17 18:12) Lipase (05/24/17 18:12) Lactic Acid (05/24/17 18:12) Prothrombin Time / Inr (Pt) (05/24/17 18:12) Act Partial Throm Time (Ptt) (05/24/17 18:12) Urinalysis - C+S If Indicated (05/24/17 18:12) Ct Abd/Pel W Iv Contrast(Rout) (05/24/17 18:12) Iv Access Insert/Monitor (05/24/17 18:12) Ecg Monitoring (05/24/17 18:12) Oximetry (05/24/17 18:12) NPO (05/24/17 18:12) Morphine Inj (Morphine Inj) (05/24/17 18:15) Ondansetron Inj (Zofran Inj) (05/24/17 18:15) Sodium Chlor 0.9% 1000 Ml Inj (Ns 1000 M (05/24/17 18:12) Sodium Chloride 0.9% Flush (Ns Flush) (05/24/17 18:15) Oral Contrast - Adult (05/24/17 18:25) Diatrizoate Liq ( Gastroamari Liq) (05/24/17 19:11) Iohexol 350 Inj (Omnipaque 350 Inj) (05/24/17 20:24) Place Ng Tube To Low Intermit (05/24/17 21:24) Insert Ng Tube (05/24/17 21:24) Sodium Chlor 0.9% 1000 Ml Inj (Ns 1000 M (05/24/17 21:30) Sodium Chlor 0.9% 1000 Ml Inj (Ns 1000 M (05/24/17 21:30) Consult Colorectal Surgery (05/24/17 ) Morphine Inj (Morphine Inj) (05/24/17 21:30) Admit Order (Ed Use Only) (05/24/17 21:35) Labs Laboratory Tests Test 05/24/17 18:30 05/24/17 18:34 White Blood Count 13.2 TH/MM3 Red Blood Count 4.04 MIL/MM3 Hemoglobin 12.5 GM/DL Hematocrit 35.0 % Mean Corpuscular Volume 86.4 FL Mean Corpuscular Hemoglobin 30.9 PG Mean Corpuscular Hemoglobin Concent 35.8 % Red Cell Distribution Width 13.1 % Platelet Count 477 TH/MM3 Mean Platelet Volume 7.4 FL Neutrophils (%) (Auto) 81.6 % Lymphocytes (%) (Auto) 11.6 % Monocytes (%) (Auto) 6.4 % Eosinophils (%) (Auto) 0.2 % Basophils (%) (Auto) 0.2 % Neutrophils # (Auto) 10.8 TH/MM3 Lymphocytes # (Auto) 1.5 TH/MM3 Monocytes # (Auto) 0.8 TH/MM3 Eosinophils # (Auto) 0.0 TH/MM3 Basophils # (Auto) 0.0 TH/MM3 CBC Comment DIFF FINAL Differential Comment Prothrombin Time 12.3 SEC Prothromb Time International Ratio 1.1 RATIO Activated Partial Thromboplast Time 30.4 SEC Blood Urea Nitrogen 16 MG/DL Creatinine 1.24 MG/DL Random Glucose 130 MG/DL Total Protein 8.9 GM/DL Albumin 2.8 GM/DL Calcium Level 9.3 MG/DL Alkaline Phosphatase 49 U/L Aspartate Amino Transf (AST/SGOT) 11 U/L Alanine Aminotransferase (ALT/SGPT) 12 U/L Total Bilirubin 0.4 MG/DL Sodium Level 135 MEQ/L Potassium Level 4.3 MEQ/L Chloride Level 99 MEQ/L Carbon Dioxide Level 29.8 MEQ/L Anion Gap 6 MEQ/L Estimat Glomerular Filtration Rate 60 ML/MIN Lactic Acid Level 0.8 mmol/L Lipase 42 U/L Urine Color YELLOW Urine Turbidity CLEAR Urine pH 6.0 Urine Specific [place] 1.020 Urine Protein 30 mg/dL Urine Glucose (UA) NEG mg/dL Urine Ketones TRACE mg/dL Urine Occult Blood NEG Urine Nitrite NEG Urine Bilirubin NEG Urine Urobilinogen LESS THAN 2.0 MG/DL Urine Leukocyte Esterase TRACE Urine RBC 1 /hpf Urine WBC 5 /hpf Urine Squamous Epithelial Cells <1 /hpf Urine Amorphous Sediment RARE Urine Mucus FEW /lpf Microscopic Urinalysis Comment CULT NOT INDICATED MDM Medical Decision Making Medical Screen Exam Complete: Yes Emergency Medical Condition: Yes Medical Record Reviewed: Yes Differential Diagnosis Small bowel obstruction versus colitis versus appendicitis versus diverticulitis versus tumor Narrative Course 61-year-old male presents to the emergency department sent by his colorectal surgeon for abdominal pain for 4 days with little colostomy output. CBC, CMP, lipase, lactic acid, PTT, PT/INR, UA, CT abdomen/pelvis with IV and by mouth contrast are ordered and pending. Patient is given normal saline 1 L IV bolus, morphine 4 mg IV, Zofran 4 mg IV. CBC shows leukocytosis 13.2, anemia hemoglobin 12.5, hematocrit 35.0. CMP shows no acute abnormality. Lipase is 42. Lactic acid is 0.8. Collection no acute abnormality. UA is negative for acute infection. CT abdomen/pelvis with IV and PO contrast shows interval development of small bowel ileus characteristic a small bowel obstructive process, persistent mild/moderate bilateral hydronephrosis, diffuse wall thickening and inflammation involving the sigmoid colon and rectum. I discussed the case with Dr. Padron, patient's colorectal surgeon. He recommends NG tube to low intermittent wall suction, second liter IV normal saline bolus, normal saline 150 mL's per hour, admitted to have this, consult colorectal, CBC, BMP in the morning. Patient is asking for more pain medication. He is given morphine [address] Fuentes accepted admission. Diagnosis Primary Impression: Small bowel obstruction Admitting Information Admitting Physician Requests: Admit Crissy Jacinto May 24, 2017 18:21
[2017-05-24 18:46] LABS: AUTOMATED NEUTROPHIL # 10.8 TH/MM3 (1.8-7.7); BASOPHIL % 0.2 % (0.0-2.0); EOSINOPHIL % 0.2 % (0.0-4.0); HEMO FLAGS DIFF FINAL; LYMPH % 11.6 % (9.0-44.0); LYMPHOCYTE # 1.5 TH/MM3 (1.0-4.8); MEAN CELL VOLUME 86.4 FL (80.0-100.0); MEAN CORPUSCULAR HEMOGLOBIN 30.9 PG (27.0-34.0); MEAN CORPUSCULAR HGB CONC 35.8 % (32.0-36.0); MONO % 6.4 % (0.0-8.0); NEUT % 81.6 % (16.0-70.0); PLATELET COUNT 477 TH/MM3 (150-450); RED BLOOD COUNT 4.04 MIL/MM3 (4.50-5.90); RED CELL DISTRIBUTION WIDTH 13.1 % (11.6-17.2); WHITE BLOOD COUNT 13.2 TH/MM3 (4.0-11.0)
[2017-05-24 18:55] LABS: BLOOD, URINE NEG (NEG); COMMENT (UR) CULT NOT INDICATED; CULTURE IF INDICATED CULT NOT INDICATED; GLUCOSE,URINE NEG (NEG); KETONE, URINE TRACE mg/dL (NEG); MUCUS URINE FEW /lpf (OCC); NITRITE,URINE NEG (NEG); SQUAMOUS EPITHELIAL CELL URINE <1 /hpf (0-5); URINE COLOR YELLOW (YELLW/STRAW)
[2017-05-24 18:59] LABS: APTT (PATIENT) 30.4 SEC (24.3-30.1); INTERNATIONAL NORMALIZED RATIO 1.1 RATIO; PROTHROMBIN TIME - PATIENT 12.3 SEC (9.8-11.6)
[2017-05-24 19:01] LABS: ALT (GPT) 12 U/L (12-78); ANION GAP 6 MEQ/L (5-15); AST (GOT) 11 U/L (15-37); BICARBONATE 29.8 MEQ/L (21.0-32.0); BLOOD UREA NITROGEN 16 MG/DL (7-18); CHLORIDE 99 MEQ/L (98-107); GLOMERULAR FILTRATION RATE 60 ML/MIN (>89); POTASSIUM 4.3 MEQ/L (3.5-5.1); SODIUM (NA) 135 MEQ/L (136-145)
[2017-05-24 19:04] LABS: ALKALINE PHOSPHATASE 49 U/L (45-117); TOTAL BILIRUBIN ADULT 0.4 MG/DL (0.2-1.0)
[2017-05-24] MEDS ORDERED: DIATRIZOATE MEGLUM/DIATRIZOATE SOD 9 ML CUP ONE (19:11)
[2017-05-24 19:30] VITALS: BP 127/76; PULSE 67; RESP 18; O2SAT 98
[2017-05-24] MEDS ORDERED: IOHEXOL 350 MG/ML 10 ML VIAL (for RAD DIAG) IVCONTRAST ONE (20:24)
--- NOTE | 2017-05-24 21:01 | RADRPT ---
EXAM DATE/TIME: 05/24/2017 20:12 [facility] COMPARISON: CT ABDOMEN & PELVIS W CONTRAST, March 28, 2017, 12:43. INDICATIONS : Abdominal pain and distention. Patient states he has been constipated X 4 days. IV CONTRAST: 96 cc Omnipaque 350 (iohexol) IV ORAL CONTRAST: Prescribed oral contrast ingested. RADIATION DOSE: 9.96 CTDIvol (mGy) MEDICAL HISTORY : Carcinoma, colon. SURGICAL HISTORY : None. ENCOUNTER: Initial ACUITY: 4 - 6 days PAIN SCALE: 7/10 LOCATION: abdomen TECHNIQUE: Volumetric scanning of the abdomen and pelvis was performed. Using automated exposure control and ad justment of the mA and/or kV according to patient size, radiation dose was kept as low as reasonably achievable to obtain optimal diagnostic quality images. DICOM format image data is available electro nically for review and comparison. FINDINGS: LOWER LUNGS: The visualized lower lungs are clear. LIVER: Homogeneous density without lesion. There is no dilation of the biliary tree. No calcified gallston es. SPLEEN: Normal size without lesion. PANCREAS: Within normal limits. KIDNEYS: Bilateral hydronephrosis is again noted. ADRENAL GLANDS: Within normal limits. VASCULAR: There is no aortic aneurysm. BOWEL/MESENTERY: Significant small bowel distention with multiple air fluid levels have developed since the prior stud y. The small bowel loops are greater than 4 cm in diameter. Left lower quadrant colostomy is again no tiffanie. Significant wall thickening remains evident throughout the sigmoid rectal region extending to th e colostomy. There is no evidence of free air there are no abnormal extraintestinal fluid collections . ABDOMINAL WALL: Within normal limits. RETROPERITONEUM: There is no lymphadenopathy. BLADDER: Bladder is not distended however mild diffuse wall thickening is noted. REPRODUCTIVE: Within normal limits. INGUINAL: There is no lymphadenopathy or hernia. MUSCULOSKELETAL: Within normal limits for patient age. CONCLUSION: 1. Interval development of small bowel ileus characteristic of a small bowel obstructive process. 2. Persistent mild/moderate bilateral hydronephrosis. 3. Diffuse wall thickening and inflammation involving the sigmoid colon and rectum. 4. No other significant change. Noah Knapp MD on May 24, 2017 at 20:53 Board Certified Radiologist. This report was verified electronically.
[2017-05-24] MEDS ORDERED: SODIUM CHLOR 0.9% 1000 ML INJ 1,000 ML IV ONE (21:30)
[2017-05-24] MEDS ORDERED: SENNOSIDES 8.6 MG TAB PO PRN (21:45)
[2017-05-24] MEDS ORDERED: ONDANSETRON HCL 4 MG/2 ML VIAL IVP PRN (21:45)
[2017-05-24] MEDS ORDERED: BISACODYL 10 MG SUPP RECTAL PRN (21:45)
[2017-05-24] MEDS ORDERED: MAGNESIUM HYDROXIDE SUSP 30 ML CUP PO PRN (21:45)
[2017-05-24] MEDS ORDERED: LACTULOSE SYRUP 20 GM/30 ML CUP PO PRN (21:45)
[2017-05-24] MEDS ORDERED: MORPHINE SULFATE 4 MG/ML INJ IV PUSH PRN (21:45)
--- NOTE | 2017-05-24 21:48 | HHI.HP ---
HPI Service [facility] Primary Care Physician No Primary Care Physician Admission Diagnosis SBO Diagnoses: (1) SBO (small bowel obstruction) Diagnosis: Principal (2) Colon cancer Diagnosis: Principal (3) Colitis Diagnosis: Principal (4) Dehydration Diagnosis: Principal (5) Tobacco abuse Diagnosis: Principal Travel History International Travel<30 Days: No Contact w/Intl Traveler <30 Da: No Traveled to Known Affected Are: No History of Present Illness This is a 61-year-old male with a PMH of Colorectal CA, Hepatitis C and Tobacco Abuse who presented with abdominal pain in addition to constipation for approx 4 days. Denies nausea, vomiting, fever or chills. Follows w/ Dr. Mendez as outpatient, states he is scheduled for colonic tumor resection on 06/01/17. Called Dr. Mendez's office today and was told by Dr. Padron to come to the ER. On arrival, BP 133/80, HR 88, O2 sat 95% on RA, Afebrile. WBC 13.2. Chemistry essentially unremarkable except for GFR 60. Lactic Acid 0.8. Case 42. INR 1.1. UA negative. CT Abd/Pelvis w/ small bowel ileus characteristic of small bowel obstructive process, persistent bilateral hydronephrosis and diffuse wall thickening of sigmoid colon/rectum. Dr. Padron consulted by ER physician, recommended NGT, IVF and eval in am. Review of Systems Except as stated in HPI: all other systems reviewed are Neg ROS: 14 point review of systems otherwise negative. Past Family Social History Past Medical History PMH: Colorectal CA, Hepatitis C and Tobacco Abuse Past Surgical History PAST SURGICAL HISTORY: Colostomy Allergies: Coded Allergies: penicillin G (Unverified Allergy, Unknown, unknown reaction, 05/24/17) Family History PAST FAMILY HISTORY: Reviewed. No h/o DM or CAD Social History PAST SOCIAL HISTORY: Negative for alcohol or drugs. Positive for tobacco. Physical Exam Vital Signs Vital Signs Date Time Temp Pulse Resp B/P (MAP) Pulse Ox O2 Delivery O2 Flow Rate FiO2 05/24/17 19:30 67 18 127/76 (93) 98 Room Air 05/24/17 18:00 22 95 Room Air 05/24/17 16:20 98.5 88 18 133/80 97 95 Physical Exam PE: GENERAL: Middle-aged male in no acute distress. HEENT: PERRLA, EOMI. No scleral icterus or conjunctival pallor. No lid lag or facial droop. CARDIOVASCULAR: Regular rate and rhythm. No obvious murmurs to auscultation. No chest tenderness to palpation. RESPIRATORY: No obvious rhonchi or wheezing. Clear to auscultation. Breath sounds equal bilaterally. GASTROINTESTINAL: Abdomen soft, mild tenderness to palpation, +colostomy, nondistended. BS normal. MUSCULOSKELETAL: Extremities without clubbing, cyanosis, or edema. No obvious deformities. NEUROLOGICAL: Awake, alert and oriented x4. No focal neurologic deficits. Moving both upper and lower extremities spontaneously. Laboratory Laboratory Tests Test 05/24/17 18:30 05/24/17 18:34 White Blood Count 13.2 Red Blood Count 4.04 Hemoglobin 12.5 Hematocrit 35.0 Mean Corpuscular Volume 86.4 Mean Corpuscular Hemoglobin 30.9 Mean Corpuscular Hemoglobin Concent 35.8 Red Cell Distribution Width 13.1 Platelet Count 477 Mean Platelet Volume 7.4 Neutrophils (%) (Auto) 81.6 Lymphocytes (%) (Auto) 11.6 Monocytes (%) (Auto) 6.4 Eosinophils (%) (Auto) 0.2 Basophils (%) (Auto) 0.2 Neutrophils # (Auto) 10.8 Lymphocytes # (Auto) 1.5 Monocytes # (Auto) 0.8 Eosinophils # (Auto) 0.0 Basophils # (Auto) 0.0 CBC Comment DIFF FINAL Differential Comment Prothrombin Time 12.3 Prothromb Time International Ratio 1.1 Activated Partial Thromboplast Time 30.4 Blood Urea Nitrogen 16 Creatinine 1.24 Random Glucose 130 Total Protein 8.9 Albumin 2.8 Calcium Level 9.3 Alkaline Phosphatase 49 Aspartate Amino Transf (AST/SGOT) 11 Alanine Aminotransferase (ALT/SGPT) 12 Total Bilirubin 0.4 Sodium Level 135 Potassium Level 4.3 Chloride Level 99 Carbon Dioxide Level 29.8 Anion Gap 6 Estimat Glomerular Filtration Rate 60 Lactic Acid Level 0.8 Lipase 42 Urine Color YELLOW Urine Turbidity CLEAR Urine pH 6.0 Urine Specific [place] 1.020 Urine Protein 30 Urine Glucose (UA) NEG Urine Ketones TRACE Urine Occult Blood NEG Urine Nitrite NEG Urine Bilirubin NEG Urine Urobilinogen LESS THAN 2.0 Urine Leukocyte Esterase TRACE Urine RBC 1 Urine WBC 5 Urine Squamous Epithelial Cells <1 Urine Amorphous Sediment RARE Urine Mucus FEW Microscopic Urinalysis Comment CULT NOT INDICATED Result Diagram: 05/24/17182905/24/171829 Loretta VTE Risk Assessment Caprini VTE Risk Assessment: No/Low Risk (score <= 1) Caprini Risk Assessment Model Point Value = 1 Point Value = 2 Point Value = 3 Point Value = 5 Age 41-60 Minor surgery BMI > 25 kg/m2 Swollen legs Varicose veins or History of unexplained or recurrent spontaneous Oral contraceptives or hormone replacement Sepsis (< 1 month) Serious lung disease, including pneumonia (< 1 month) Abnormal pulmonary function Acute myocardial infarction Congestive heart failure (< 1 month) History of inflammatory bowel disease Medical patient at bed rest Age 61-74 Arthroscopic surgery Major open surgery (> 45 min) Laparoscopic surgery (> 45 min) Malignancy Confined to bed (> 72 hours) Immobilizing plaster cast Central venous access Age >= 75 History of VTE Family history of VTE Factor V Leiden Prothrombin [id number] Lupus anticoagulant Anticardiolipin antibodies Elevated serum homocysteine Heparin-induced thrombocytopenia Other congenital or acquired thrombophilia Stroke (< 1 month) Elective arthroplasty Hip, pelvis, or leg fracture Acute spinal cord injury (< 1 month) Prophylaxis Regimen Total Risk Factor Score Risk Level Prophylaxis Regimen 0-1 Low Early ambulation 2 Moderate Order ONE of the following: *Sequential Compression Device (SCD) *Heparin 5000 units SQ BID 3-4 Higher Order ONE of the following medications: *Heparin 5000 units SQ TID *Enoxaparin/Lovenox 40 mg SQ daily (WT < 150 kg, CrCl > 30 mL/min) *Enoxaparin/Lovenox 30 mg SQ daily (WT < 150 kg, CrCl > 10-29 mL/min) *Enoxaparin/Lovenox 30 mg SQ BID (WT < 150 kg, CrCl > 30 mL/min) AND/OR *Sequential Compression Device (SCD) 5 or more Highest Order ONE of the following medications: *Heparin 5000 units SQ TID (Preferred with Epidurals) *Enoxaparin/Lovenox 40 mg SQ daily (WT < 150 kg, CrCl > 30 mL/min) *Enoxaparin/Lovenox 30 mg SQ daily (WT < 150 kg, CrCl > 10-29 mL/min) *Enoxaparin/Lovenox 30 mg SQ BID (WT < 150 kg, CrCl > 30 mL/min) AND *Sequential Compression Device (SCD) Assessment and Plan Problem List: (1) SBO (small bowel obstruction) ICD Code: K56.609 - Unspecified intestinal obstruction, unspecified as to partial versus complete obstruction (2) Colitis ICD Code: K52.9 - Noninfective gastroenteritis and colitis, unspecified Status: Acute (3) Dehydration ICD Code: E86.0 - Dehydration (4) Colon cancer ICD Code: C18.9 - Malignant neoplasm of colon, unspecified (5) Tobacco abuse ICD Code: Z72.0 - Tobacco use Assessment and Plan A/P: 1. SBO: c/o abdominal pain and constipation x4 days, CT Abd/Pelvis w/ small bowel ileus/obstruction, images reviewed by me. Follows w/ Dr. Mendez as outpatient, Dr. Padron consulted, recommended NGT, IVF and eval in am. Keep NPO , convert PO meds to IV. Analgesics/antiemetics as needed. Monitor I/O. 2. Colitis: CT Abd/Pelvis w/ diffuse wall thickening/inflammation sigmoid colon/rectum. WBC 13.2. Will start on treatment w/ Cipro/Flagyl. 3. Colon CA: Follows w/ Dr. Mendez as outpatient, found to have recurrence, scheduled for tumor resection 06/01/17, Consult ordered. 4. Dehydration: GFR 60, BUN/Creat normal, IVF for hydration, repeat labs in am. 5. Tobacco Abuse: Counselled. NicoDerm/Ativan prn if needed. 6. DVT Prophylaxis: SCD/Teds. 7. Social work for d/c planning as needed. 8. Case discussed w/ ER physician at length. Physician Certification 2 Midnight Certification Type: Admission for Inpatient Services Order for Inpatient Services The services are ordered in accordance with Medicare regulations or non- Medicare payer requirements, as applicable. In the case of services not specified as inpatient-only, they are appropriately provided as inpatient services in accordance with the 2-midnight benchmark. Estimated LOS (days): 2 days is the estimated time the patient will need to remain in the hospital, assuming treatment plan goals are met and no additional complications. Post-Hospital Plan: Not yet determined Saige Lowery MD May 24, 2017 21:48
[2017-05-24] MEDS ORDERED: ACETAMINOPHEN 1000 MG/100 ML 100 ML IV PRN (22:00)
[2017-05-24] MEDS: SODIUM CHLOR 0.9% 1000 ML INJ 1,000 ML IV SCH (22:13)
[2017-05-24 22:41] VITALS: BP 125/77; PULSE 73; RESP 18; O2SAT 98
[2017-05-25] MEDS: metroNIDAZOLE 500 MG INJ 100 ML IV SCH ×4 (00:09→23:05)
[2017-05-25] MEDS: MORPHINE SULFATE 4 MG/ML INJ IV PUSH PRN ×8 (00:10→21:55)
[2017-05-25 01:00] VITALS: BP 119/74; PULSE 59; RESP 18; TEMP 96; O2SAT 98
[2017-05-25] MEDS: SODIUM CHLOR 0.9% 1000 ML INJ 1,000 ML IV SCH ×4 (04:10→21:53)
[2017-05-25 07:45] LABS: AUTOMATED NEUTROPHIL # 5.6 TH/MM3 (1.8-7.7); BASOPHIL % 0.3 % (0.0-2.0); EOSINOPHIL # 0.1 TH/MM3 (0-0.4); EOSINOPHIL % 1.5 % (0.0-4.0); HEMATOCRIT 31.1 % (39.0-51.0); HEMO FLAGS DIFF FINAL; LYMPH % 18.1 % (9.0-44.0); LYMPHOCYTE # 1.5 TH/MM3 (1.0-4.8); MEAN CORPUSCULAR HEMOGLOBIN 28.6 PG (27.0-34.0); MEAN CORPUSCULAR HGB CONC 32.9 % (32.0-36.0); MONO % 12.1 % (0.0-8.0); PLATELET COUNT 410 TH/MM3 (150-450); RED BLOOD COUNT 3.57 MIL/MM3 (4.50-5.90); WHITE BLOOD COUNT 8.3 TH/MM3 (4.0-11.0)
[2017-05-25 08:00] VITALS: BP 107/70; PULSE 76; RESP 19; TEMP 96.9; O2SAT 97
[2017-05-25 08:24] LABS: ALKALINE PHOSPHATASE 39 U/L (45-117); ALT (GPT) 9 U/L (12-78); ANION GAP 8 MEQ/L (5-15); AST (GOT) 9 U/L (15-37); BICARBONATE 28.1 MEQ/L (21.0-32.0); BLOOD UREA NITROGEN 13 MG/DL (7-18); CHLORIDE 101 MEQ/L (98-107); GLOMERULAR FILTRATION RATE 69 ML/MIN (>89); POTASSIUM 3.9 MEQ/L (3.5-5.1); SODIUM (NA) 137 MEQ/L (136-145); TOTAL BILIRUBIN ADULT 0.3 MG/DL (0.2-1.0)
[2017-05-25] MEDS: DOCUSATE SODIUM 50 MG/SENNA 8.6 MG TAB PO SCH ×3 (09:00→21:00)
[2017-05-25] MEDS ORDERED: INFLUENZA VIRUS VACCINE (QUADRIVALENT) 0.5 ML SYR IM ONE (09:00)
[2017-05-25] MEDS: SODIUM CHLORIDE 0.9% FLUSH 10 ML FLUSH IV FLUSH SCH ×2 (09:00→21:54)
--- NOTE | 2017-05-25 09:42 | HHI.PR ---
Subjective Remarks In bed, says she has no pain at this time, however say ann is more localized on the left lower side and is intermittent. Still with nausea , NGT in place, no vomiting. Hungry wants to eat. Says stoma is empty for 3 days. Objective Vitals Vital Signs Date Time Temp Pulse Resp B/P (MAP) Pulse Ox O2 Delivery O2 Flow Rate FiO2 05/25/17 08:00 96.9 76 19 107/70 (82) 97 05/25/17 01:00 96.0 59 18 119/74 (89) 98 05/24/17 22:42 05/24/17 22:41 73 18 125/77 (93) 98 Room Air 05/24/17 19:30 67 18 127/76 (93) 98 Room Air 05/24/17 18:00 22 95 Room Air 05/24/17 16:20 98.5 88 18 133/80 (97) 95 I/O 05/24/17 05/24/17 05/24/17 05/25/17 05/25/17 05/25/17 07:00 15:00 23:00 07:00 15:00 23:00 Intake Total 1000 ml 2300 ml 100 ml Output Total 1750 ml Balance 1000 ml 550 ml 100 ml Intake Oral 0 ml IV Total 1000 ml 2300 ml 100 ml Output Urine Total 600 ml Stool Total 0 ml Gastric Drainage Total 1150 ml # Voids 1 Result Diagram: 05/25/17 0559 05/25/17 0559 Imaging Last Impressions Abdomen/Pelvis CT 05/24/17 181 Signed Impressions: Service Date/Time: Wednesday, May 24, 2017 20:12 - CONCLUSION: 1. Interval development of small bowel ileus characteristic of a small bowel obstructive process. 2. Persistent mild/moderate bilateral hydronephrosis. 3. Diffuse wall thickening and inflammation involving the sigmoid colon and rectum. 4. No other significant change. Noah Knapp MD Objective Remarks GENERAL: Middle-aged male in no acute distress. CARDIOVASCULAR: Regular rate and rhythm. No obvious murmurs to auscultation. No chest tenderness to palpation. RESPIRATORY: No obvious rhonchi or wheezing. Clear to auscultation. Breath sounds equal bilaterally. GASTROINTESTINAL: Abdomen soft, mild tenderness to palpation, +colostomy, nondistended. BS normal. MUSCULOSKELETAL: Extremities without clubbing, cyanosis, or edema. No obvious deformities. NEUROLOGICAL: Awake, alert and oriented x4. No focal neurologic deficits. Moving both upper and lower extremities spontaneously. A/P Problem List: (1) SBO (small bowel obstruction) ICD Code: K56.609 - Unspecified intestinal obstruction, unspecified as to partial versus complete obstruction (2) Colitis ICD Code: K52.9 - Noninfective gastroenteritis and colitis, unspecified Status: Acute (3) Dehydration ICD Code: E86.0 - Dehydration (4) Colon cancer ICD Code: C18.9 - Malignant neoplasm of colon, unspecified (5) Tobacco abuse ICD Code: Z72.0 - Tobacco use Assessment and Plan SBO: c/o abdominal pain and constipation x4 days, CT Abd/Pelvis reviewed consistent with small bowel ileus/obstruction. Follows w/ Dr. Mendez as outpatient, Dr. Padron consulted, recommended NGT, IVF. Keep NPO, convert PO meds to IV. Analgesics/antiemetics as needed. Monitor I/O. Advance diet per surgery recommendation. NPO for now pending imprpvem,ent, with copious amount of dark fluid Colitis: CT Abd/Pelvis w/ diffuse wall thickening/inflammation sigmoid colon/ rectum. WBC 13.2. Cont treatment w/ Cipro/Flagyl. Colon CA: Follows w/ Dr. Mendez as outpatient, found to have recurrence, scheduled for tumor resection 06/01/17. Consult Dr Mendez. Dehydration: GFR 60, BUN/Creat normal, IVF for hydration, repeat labs in am. Tobacco Abuse: Counselled. NicoDerm/Ativan prn if needed. DVT Prophylaxis: SCD/Teds. Case management consulted for d/c planning as needed. Discussed with the patient, nurse Sadia Candelario MD May 25, 2017 09:42
[2017-05-25] MEDS: CIPROFLOXACIN 400 MG PREMIX 200 ML IV SCH ×2 (11:45)
[2017-05-25 12:00] VITALS: BP 110/59; PULSE 71; RESP 20; TEMP 98.3; O2SAT 97
[2017-05-25] MEDS ORDERED: LACTULOSE SYRUP 20 GM/30 ML CUP PO PRN (12:00)
[2017-05-25 16:00] VITALS: BP 108/64; PULSE 74; RESP 20; TEMP 97.7; O2SAT 96
--- NOTE | 2017-05-25 17:05 | HHI.PR ---
Subjective Remarks C/R Surg Events reviewed pt uriel for surg next week c/o abd pain/N/V NGT - lg am't drainage Objective - Vital Signs Date Time Temp Pulse Resp B/P (MAP) Pulse Ox O2 Delivery O2 Flow Rate FiO2 05/25/17 16:00 97.7 74 20 108/64 (79) 96 05/24/17 22:41 Room Air Result Diagram: 05/25/17 0559 05/25/17 0559 Objective Remarks PE alert Abd - soft, tender RUQ, no mass, minor tympany A/P Assessment and Plan Imp: SBO by CT, some stoma output, less abd pain OOB try PO slowly poss surgery later in week John Mendez MD May 25, 2017 17:05
[2017-05-25 20:00] VITALS: BP 105/72; PULSE 78; RESP 18; TEMP 97.9; O2SAT 94
[2017-05-26] VITALS: BP 113/69; PULSE 78; RESP 18; TEMP 97.3; O2SAT 94
[2017-05-26] MEDS: MORPHINE SULFATE 4 MG/ML INJ IV PUSH PRN ×7 (01:12→23:03)
[2017-05-26] MEDS: CIPROFLOXACIN 400 MG PREMIX 200 ML IV SCH ×2 (01:13→12:38)
[2017-05-26] MEDS: metroNIDAZOLE 500 MG INJ 100 ML IV SCH ×3 (06:40→23:02)
[2017-05-26 08:00] VITALS: BP 126/74; PULSE 77; RESP 18; TEMP 98.5; O2SAT 95
--- NOTE | 2017-05-26 08:56 | RADRPT ---
EXAM DATE/TIME: 05/26/2017 08:28 [facility] COMPARISON: CT ABDOMEN & PELVIS W CONTRAST, May 24, 2017, 20:12. ABDOMEN FLAT & UPRIGHT, November 03, 2011, 19: 32. INDICATIONS : Follow up small bowel obstruction. MEDICAL HISTORY : Hepatitis C. Carcinoma, rectal. SURGICAL HISTORY : Colon resection, ileostomy. ENCOUNTER: Subsequent ACUITY: 3 days PAIN SCORE: 7/10 LOCATION: Bilateral Abdomen FINDINGS: Supine and upright views of the abdomen were performed. There is an NG tube in the stomach. There con tinues to be some dilatation of the small bowel loops. However this appears to be improved compared t o the recent crate liner film from the CT scan of the abdomen of 05/24/2017. The colon is nondilated. There is stool in the colon. No free air is seen.. CONCLUSION: Improving bowel gas pattern with less small bowel dilatation on today's exam compared to the crate liner fi lm from the recent CT scan of the abdomen. There is an NG tube in the stomach. Bernabe Bentley MD on May 26, 2017 at 8:52 Board Certified Radiologist. This report was verified electronically.
[2017-05-26] MEDS: DOCUSATE SODIUM 50 MG/SENNA 8.6 MG TAB PO SCH (09:00)
--- NOTE | 2017-05-26 09:28 | HHI.PR ---
Subjective Remarks In bed, less nausea , no vomiting abd pain is better controlled. No fevr ro chills. Awaiting surgery . Objective Vitals Vital Signs Date Time Temp Pulse Resp B/P (MAP) Pulse Ox O2 Delivery O2 Flow Rate FiO2 05/26/17 00:00 97.3 78 18 113/69 (84) 94 05/25/17 20:00 97.9 78 18 105/72 (83) 94 05/25/17 18:49 18 05/25/17 16:00 97.7 74 20 108/64 (79) 96 05/25/17 12:00 98.3 71 20 110/59 (76) 97 I/O 05/25/17 05/25/17 05/25/17 05/26/17 05/26/17 05/26/17 07:00 15:00 23:00 07:00 15:00 23:00 Intake Total 2300 ml 100 ml 120 ml 200 ml 100 ml Output Total 1750 ml 1200 ml 650 ml Balance 550 ml 100 ml -1080 ml -450 ml 100 ml Intake Oral 0 ml 120 ml IV Total 2300 ml 100 ml 200 ml 100 ml Output Urine Total 600 ml 1000 ml 650 ml Stool Total 0 ml Gastric Drainage Total 1150 ml 200 ml # Bowel Movements 0 Result Diagram: 05/25/17 0559 05/25/17 0559 Imaging Last Impressions Abdomen X-Ray 05/26/17 0000 Signed Impressions: Service Date/Time: Friday, May 26, 2017 08:28 - CONCLUSION: Improving bowel gas pattern with less small bowel dilatation on today's exam compared to the pipe coverer helper film from the recent CT scan of the abdomen. There is an NG tube in the stomach. Bernabe Bentley MD Abdomen/Pelvis CT 05/24/17 181 Signed Impressions: Service Date/Time: Wednesday, May 24, 2017 20:12 - CONCLUSION: 1. Interval development of small bowel ileus characteristic of a small bowel obstructive process. 2. Persistent mild/moderate bilateral hydronephrosis. 3. Diffuse wall thickening and inflammation involving the sigmoid colon and rectum. 4. No other significant change. Noah Knapp MD Objective Remarks GENERAL: Middle-aged male in no acute distress. CARDIOVASCULAR: Regular rate and rhythm. No obvious murmurs to auscultation. No chest tenderness to palpation. RESPIRATORY: No obvious rhonchi or wheezing. Clear to auscultation. Breath sounds equal bilaterally. GASTROINTESTINAL: Abdomen soft, mild tenderness to palpation, +colostomy, nondistended. BS normal. MUSCULOSKELETAL: Extremities without clubbing, cyanosis, or edema. No obvious deformities. NEUROLOGICAL: Awake, alert and oriented x4. No focal neurologic deficits. Moving both upper and lower extremities spontaneously. A/P Problem List: (1) SBO (small bowel obstruction) ICD Code: K56.609 - Unspecified intestinal obstruction, unspecified as to partial versus complete obstruction (2) Colitis ICD Code: K52.9 - Noninfective gastroenteritis and colitis, unspecified Status: Acute (3) Dehydration ICD Code: E86.0 - Dehydration (4) Colon cancer ICD Code: C18.9 - Malignant neoplasm of colon, unspecified (5) Tobacco abuse ICD Code: Z72.0 - Tobacco use Assessment and Plan SBO: c/o abdominal pain and constipation x4 days, CT Abd/Pelvis reviewed consistent with small bowel ileus/obstruction. Follows w/ Dr. Mendez as outpatient, Dr. Padron consulted, recommended NGT, IVF. Keep NPO, convert PO meds to IV. Analgesics/antiemetics as needed. Monitor I/O. Advance diet per surgery recommendation. NPO for now pending improvement, with copious amount of dark fluid, advance diet per surgeon recommendations, can have ice chips, popsicle per surgeon Seen by Dr Mendez recommends surgery later this week. Colitis: CT Abd/Pelvis w/ diffuse wall thickening/inflammation sigmoid colon/ rectum. WBC 13.2. Cont treatment w/ Cipro/Flagyl. Colon CA: Follows w/ Dr. Mendez as outpatient, found to have recurrence, scheduled for tumor resection 06/01/17. Consult Dr Mendez. Dehydration: GFR 60, BUN/Creat normal, IVF for hydration, repeat labs in am. Tobacco Abuse: Counselled. NicoDerm/Ativan prn if needed. DVT Prophylaxis: SCD/Teds. Case management consulted for d/c planning as needed. Discussed with the patient, nurse Sadia Candelario MD May 26, 2017 09:28
[2017-05-26] MEDS: SODIUM CHLORIDE 0.9% FLUSH 10 ML FLUSH IV FLUSH SCH ×2 (10:10→20:07)
--- NOTE | 2017-05-26 10:58 | MB ---
cc: JUDY BERNAL MD DATE OF CONSULTATION 05/24/2017 HISTORY OF PRESENT ILLNESS This is a 61 year-old gentleman with recurrent rectal cancer currently diverted with a loop sigmoid colostomy. The patient has had chronic infection within the recurrent tumor and is being considered for attempted resection of the area. The patient presents to the emergency room with a 24-hour history of vomiting and cramps. The patient denies fevers. He is still passing some stool through his colostomy. He is otherwise healthy and on no medications. PAST HISTORY He is ALLERGIC TO PENICILLIN. PHYSICAL EXAM On exam, he is alert without distress. VITAL SIGNS: His vital signs are normal. LUNGS: His respirations are normal. SKIN: Warm and dry. ABDOMEN: His abdomen does have a moderate tenderness on the left and right. His colostomy is pink. A digital exam was performed without obstruction at the stoma site. Exam was carried through the fascia. RECTAL: Exam was not performed. LABORATORY DATA Showed an acceptable CBC and chemistries. CT scanning is consistent with a small bowel obstruction. ASSESSMENT Small bowel obstruction which may be related to a loop of small bowel into the recurrent tumor. PLAN The patient will be admitted to the hospital with NG suction, IV fluids and serial x-rays. If the process does not resolve, surgical exploration may be required. MD JANNA El/KOLBY /10:00 AM /10:43 AM
[2017-05-26 12:00] VITALS: BP 111/69; PULSE 66; RESP 18; TEMP 97.4; O2SAT 95
[2017-05-26] MEDS: SODIUM CHLOR 0.9% 1000 ML INJ 1,000 ML IV SCH ×2 (12:39→23:02)
[2017-05-26 16:00] VITALS: BP 120/69; PULSE 71; RESP 16; TEMP 98.8; O2SAT 93
[2017-05-26 20:49] VITALS: BP 118/69; PULSE 80; RESP 18; TEMP 99.1; O2SAT 93
--- NOTE | 2017-05-26 21:09 | HHI.PR ---
Subjective Remarks C/R Surg Events reviewed pt uriel for surg next week abd pin better NGT - less output Objective - Vital Signs Date Time Temp Pulse Resp B/P (MAP) Pulse Ox O2 Delivery O2 Flow Rate FiO2 05/26/17 20:49 99.1 80 18 118/69 (85) 93 05/24/17 22:41 Room Air Result Diagram: 05/25/17 0559 05/25/17 0559 Objective Remarks PE alert Abd - soft, less tympany, some stomal output A/P Assessment and Plan Imp: SBO by CT, some stoma output, less abd pain KUB shows gas in colon OOB try PO slowly poss surgery later in week John Mendez MD May 26, 2017 21:09
[2017-05-27] MEDS: CIPROFLOXACIN 400 MG PREMIX 200 ML IV SCH ×2 (00:18→11:25)
[2017-05-27 00:42] VITALS: BP 123/70; PULSE 79; RESP 18; TEMP 99; O2SAT 93
[2017-05-27] MEDS: MORPHINE SULFATE 4 MG/ML INJ IV PUSH PRN ×7 (01:53→20:51)
[2017-05-27] MEDS: metroNIDAZOLE 500 MG INJ 100 ML IV SCH ×3 (05:21→23:38)
[2017-05-27] MEDS: SODIUM CHLOR 0.9% 1000 ML INJ 1,000 ML IV SCH ×2 (07:25→20:53)
[2017-05-27 07:54] VITALS: BP 113/71; PULSE 77; RESP 20; TEMP 98.5; O2SAT 95
[2017-05-27] MEDS: SODIUM CHLORIDE 0.9% FLUSH 10 ML FLUSH IV FLUSH SCH ×2 (08:13→20:53)
--- NOTE | 2017-05-27 11:30 | HHI.PR ---
Subjective Remarks C/R Surg Events reviewed abd pain better NGT - less output, DC'd stoma air Objective - Vital Signs Date Time Temp Pulse Resp B/P (MAP) Pulse Ox O2 Delivery O2 Flow Rate FiO2 05/27/17 07:54 98.5 77 20 113/71 (85) 95 05/24/17 22:41 Room Air Result Diagram: 05/25/17 0559 05/25/17 0559 Objective Remarks PE alert Abd - soft, less tympany, some stomal output less tender A/P Assessment and Plan Imp: SBO OOB try PO slowly poss surgery later in week John Mendez MD May 27, 2017 11:30
[2017-05-27] MEDS: PANTOPRAZOLE SOD 40 MG DELAYED RELEASE TAB PO SCH (11:35)
[2017-05-27] MEDS: PANTOPRAZOLE SODIUM 40 MG VIAL IV PUSH SCH (11:55)
[2017-05-27 12:00] VITALS: BP 123/77; PULSE 74; RESP 20; TEMP 97.5; O2SAT 96
--- NOTE | 2017-05-27 14:37 | HHI.PR ---
Subjective Remarks In bed, NGT with less output. had gas in the stoma. Patient feels imprpving. No more nausea and no vomiting. Advance diet per surgeon. No fever or chills.No n/v/d/c. Objective Vitals Vital Signs Date Time Temp Pulse Resp B/P (MAP) Pulse Ox O2 Delivery O2 Flow Rate FiO2 05/27/17 12:00 97.5 74 20 123/77 (92) 96 05/27/17 08:18 18 05/27/17 07:54 98.5 77 20 113/71 (85) 95 05/27/17 00:42 99.0 79 18 123/70 (87) 93 05/26/17 20:49 99.1 80 18 118/69 (85) 93 05/26/17 16:41 18 05/26/17 16:00 98.8 71 16 120/69 (86) 93 I/O 05/26/17 05/26/17 05/26/17 05/27/17 05/27/17 05/27/17 07:00 15:00 23:00 07:00 15:00 23:00 Intake Total 200 ml 100 ml 120 ml 200 ml 0 ml Output Total 650 ml 1750 ml 300 ml Balance -450 ml 100 ml -1630 ml -100 ml 0 ml Intake Oral 120 ml 0 ml IV Total 200 ml 100 ml 200 ml Output Urine Total 650 ml 850 ml 300 ml Stool Total 0 ml Gastric Drainage Total 900 ml Result Diagram: 05/25/17 0559 05/25/17 0559 Imaging Last Impressions Abdomen X-Ray 05/26/17 0000 Signed Impressions: Service Date/Time: Friday, May 26, 2017 08:28 - CONCLUSION: Improving bowel gas pattern with less small bowel dilatation on today's exam compared to the utilities service investigator film from the recent CT scan of the abdomen. There is an NG tube in the stomach. Bernabe Bentley MD Abdomen/Pelvis CT 05/24/17 1812 Signed Impressions: Service Date/Time: Wednesday, May 24, 2017 20:12 - CONCLUSION: 1. Interval development of small bowel ileus characteristic of a small bowel obstructive process. 2. Persistent mild/moderate bilateral hydronephrosis. 3. Diffuse wall thickening and inflammation involving the sigmoid colon and rectum. 4. No other significant change. Noah Knapp MD Objective Remarks GENERAL: Middle-aged male in no acute distress. CARDIOVASCULAR: Regular rate and rhythm. No obvious murmurs to auscultation. No chest tenderness to palpation. RESPIRATORY: No obvious rhonchi or wheezing. Clear to auscultation. Breath sounds equal bilaterally. GASTROINTESTINAL: Abdomen soft, mild tenderness to palpation, +colostomy, nondistended. BS normal. MUSCULOSKELETAL: Extremities without clubbing, cyanosis, or edema. No obvious deformities. NEUROLOGICAL: Awake, alert and oriented x4. No focal neurologic deficits. Moving both upper and lower extremities spontaneously. A/P Problem List: (1) SBO (small bowel obstruction) ICD Code: K56.609 - Unspecified intestinal obstruction, unspecified as to partial versus complete obstruction (2) Colitis ICD Code: K52.9 - Noninfective gastroenteritis and colitis, unspecified Status: Acute (3) Dehydration ICD Code: E86.0 - Dehydration (4) Colon cancer ICD Code: C18.9 - Malignant neoplasm of colon, unspecified (5) Tobacco abuse ICD Code: Z72.0 - Tobacco use Assessment and Plan SBO: c/o abdominal pain and constipation x4 days, CT Abd/Pelvis reviewed consistent with small bowel ileus/obstruction. Follows w/ Dr. Mendez as outpatient, Dr. Padron consulted, recommended NGT, IVF. Keep NPO, convert PO meds to IV. Analgesics/antiemetics as needed. Monitor I/O. Advance diet per surgery recommendation. Seen by Dr Mendez recommends surgery later this week. Colitis: CT Abd/Pelvis w/ diffuse wall thickening/inflammation sigmoid colon/ rectum. WBC 13.2. Cont treatment w/ Cipro/Flagyl. Colon CA: Follows w/ Dr. Mendez as outpatient, found to have recurrence, scheduled for tumor resection 06/01/17. Consult Dr Mendez. Dehydration: GFR 60, BUN/Creat normal, IVF for hydration, repeat labs in am. Tobacco Abuse: Counselled. NicoDerm/Ativan prn if needed. DVT Prophylaxis: SCD/Teds. Case management consulted for d/c planning as needed. Discussed with the patient, nurse Sadia Candelario MD May 27, 2017 14:37
[2017-05-27 16:00] VITALS: BP 102/60; PULSE 72; RESP 20; TEMP 98; O2SAT 96
[2017-05-27 20:00] VITALS: BP 112/74; PULSE 75; RESP 17; TEMP 98; O2SAT 96
[2017-05-28] VITALS: BP 111/68; PULSE 77; RESP 18; TEMP 98.8; O2SAT 95
[2017-05-28] MEDS: MORPHINE SULFATE 4 MG/ML INJ IV PUSH PRN ×8 (00:04→23:36)
[2017-05-28] MEDS: CIPROFLOXACIN 400 MG PREMIX 200 ML IV SCH ×2 (00:41→11:09)
[2017-05-28] MEDS: metroNIDAZOLE 500 MG INJ 100 ML IV SCH ×3 (06:02→23:37)
[2017-05-28] MEDS: PANTOPRAZOLE SOD 40 MG DELAYED RELEASE TAB PO SCH (07:43)
[2017-05-28] MEDS: PANTOPRAZOLE SODIUM 40 MG VIAL IV PUSH SCH (07:43)
[2017-05-28] MEDS: SODIUM CHLORIDE 0.9% FLUSH 10 ML FLUSH IV FLUSH SCH ×2 (07:44→20:33)
--- NOTE | 2017-05-28 07:47 | HHI.PR ---
Subjective Remarks C/R Surg abd pain better shira PO stoma air Objective - Vital Signs Date Time Temp Pulse Resp B/P (MAP) Pulse Ox O2 Delivery O2 Flow Rate FiO2 05/28/17 00:00 98.8 77 18 111/68 (82) 95 05/24/17 22:41 Room Air Result Diagram: 05/25/17 0559 05/25/1759 Objective Remarks PE alert Abd - soft, less tympany, some stomal output A/P Assessment and Plan Imp: OOB try PO slowly, adv poss surgery later next week John Mendez MD May 28, 2017 07:47
[2017-05-28 08:00] VITALS: BP 111/72; PULSE 72; RESP 16; TEMP 97.3; O2SAT 96
[2017-05-28] MEDS: POLYETHYLENE GLYCOL 17 GM PKG PO SCH (08:52)
[2017-05-28] MEDS: SODIUM CHLOR 0.9% 1000 ML INJ 1,000 ML IV SCH (11:49)
[2017-05-28 12:00] VITALS: BP 111/70; PULSE 82; RESP 18; TEMP 98.1; O2SAT 96
--- NOTE | 2017-05-28 13:19 | HHI.PR ---
Subjective Remarks No nausea or vomiting. No fever or chills. Some abd cramps. No cough. Patient is able to eat, however not much output in the stoma, per Dr Mendez will eval tomorrow if good OP in stoma and improves can be DC tomorrow to have surgery next week. Objective Vitals Vital Signs Date Time Temp Pulse Resp B/P (MAP) Pulse Ox O2 Delivery O2 Flow Rate FiO2 05/28/17 08:00 97.3 72 16 111/72 (85) 96 05/28/17 00:00 98.8 77 18 111/68 (82) 95 05/27/17 20:56 18 05/27/17 20:00 98.0 75 17 112/74 (87) 96 05/27/17 16:00 98.0 72 20 102/60 (74) 96 I/O 05/27/17 05/27/17 05/27/17 05/28/17 05/28/17 05/28/17 07:00 15:00 23:00 07:00 15:00 23:00 Intake Total 200 ml 200 ml 2100 ml 750 ml 100 ml Output Total 300 ml 1200 ml 1150 ml Balance -100 ml 200 ml 900 ml -400 ml 100 ml Intake Oral 0 ml 1000 ml 450 ml IV Total 200 ml 200 ml 1100 ml 300 ml 100 ml Output Urine Total 300 ml 1200 ml 1150 ml # Bowel Movements 0 Result Diagram: 05/25/17 0559 05/25/17 0559 Imaging Last Impressions Abdomen X-Ray 05/26/17 0000 Signed Impressions: Service Date/Time: Friday, May 26, 2017 08:28 - CONCLUSION: Improving bowel gas pattern with less small bowel dilatation on today's exam compared to the data acquisition technician film from the recent CT scan of the abdomen. There is an NG tube in the stomach. Bernabe Bentley MD Abdomen/Pelvis CT 05/24/17 1812 Signed Impressions: Service Date/Time: Wednesday, May 24, 2017 20:12 - CONCLUSION: 1. Interval development of small bowel ileus characteristic of a small bowel obstructive process. 2. Persistent mild/moderate bilateral hydronephrosis. 3. Diffuse wall thickening and inflammation involving the sigmoid colon and rectum. 4. No other significant change. Noah Knapp MD Objective Remarks GENERAL: Middle-aged male in no acute distress. CARDIOVASCULAR: Regular rate and rhythm. No obvious murmurs to auscultation. No chest tenderness to palpation. RESPIRATORY: No obvious rhonchi or wheezing. Clear to auscultation. Breath sounds equal bilaterally. GASTROINTESTINAL: Abdomen soft, mild tenderness to palpation, +colostomy, nondistended no output in colostomy. BS normal. MUSCULOSKELETAL: Extremities without clubbing, cyanosis, or edema. No obvious deformities. NEUROLOGICAL: Awake, alert and oriented x4. No focal neurologic deficits. Moving both upper and lower extremities spontaneously. A/P Problem List: (1) SBO (small bowel obstruction) ICD Code: K56.609 - Unspecified intestinal obstruction, unspecified as to partial versus complete obstruction (2) Colitis ICD Code: K52.9 - Noninfective gastroenteritis and colitis, unspecified Status: Acute (3) Dehydration ICD Code: E86.0 - Dehydration (4) Colon cancer ICD Code: C18.9 - Malignant neoplasm of colon, unspecified (5) Tobacco abuse ICD Code: Z72.0 - Tobacco use Assessment and Plan SBO: c/o abdominal pain and constipation x4 days, CT Abd/Pelvis reviewed consistent with small bowel ileus/obstruction. Follows w/ Dr. Mendez as outpatient, Dr. Padron consulted, recommended NGT, IVF. Keep NPO, convert PO meds to IV. Analgesics/antiemetics as needed. Monitor I/O. Advance diet per surgery recommendation. Seen by Dr Mendez recommends surgery next week. Patient is able to eat, however not much output in the stoma, per Dr Mendez will eval tomorrow if good OP in stoma and improves can be DC tomorrow to have surgery next week. Colitis: CT Abd/Pelvis w/ diffuse wall thickening/inflammation sigmoid colon/ rectum. WBC 13.2. Cont treatment w/ Cipro/Flagyl. Colon CA: Follows w/ Dr. Mendez as outpatient, found to have recurrence, scheduled for tumor resection 06/01/17. Consult Dr Mendez. Dehydration: GFR 60, BUN/Creat normal, IVF for hydration, repeat labs in am. Tobacco Abuse: Counselled. NicoDerm/Ativan prn if needed. DVT Prophylaxis: SCD/Teds. Case management consulted for d/c planning as needed. Discussed with the patient, nurse DC plan: Patient is able to eat, however not much output in the stoma, per Dr Mendez will eval tomorrow if good OP in stoma and improves can be DC tomorrow to have surgery next week. If no output in stoma patient will not be DC tomorrow per surgeon Sadia Candelario MD May 28, 2017 13:18
[2017-05-28 16:00] VITALS: BP 113/75; PULSE 67; RESP 17; TEMP 97.5; O2SAT 96
[2017-05-28] MEDS ORDERED: PANT40TA3 PO (18:07)
[2017-05-28] MEDS ORDERED: HYDR-3580 PO (18:07)
[2017-05-28] MEDS ORDERED: POLY17S PO (18:07)
--- NOTE | 2017-05-28 18:09 | HHI.DS ---
Discharge Summary Admission Date May 24, 2017 at 21:36 Discharge Date: May 29, 2017 Admitting Diagnosis SBO (1) SBO (small bowel obstruction) ICD Code: K56.609 - Unspecified intestinal obstruction, unspecified as to partial versus complete obstruction (2) Colitis ICD Code: K52.9 - Noninfective gastroenteritis and colitis, unspecified Status: Acute (3) Dehydration ICD Code: E86.0 - Dehydration (4) Colon cancer ICD Code: C18.9 - Malignant neoplasm of colon, unspecified (5) Tobacco abuse ICD Code: Z72.0 - Tobacco use Procedures none Brief History - From Admission This is a 61-year-old male with a PMH of Colorectal CA, Hepatitis C and Tobacco Abuse who presented with abdominal pain in addition to constipation for approx 4 days. Denies nausea, vomiting, fever or chills. Follows w/ Dr. Mendez as outpatient, states he is scheduled for colonic tumor resection on 06/01/17. Called Dr. Mendez's office today and was told by Dr. Padron to come to the ER. On arrival, BP 133/80, HR 88, O2 sat 95% on RA, Afebrile. WBC 13.2. Chemistry essentially unremarkable except for GFR 60. Lactic Acid 0.8. Case 42. INR 1.1. UA negative. CT Abd/Pelvis w/ small bowel ileus characteristic of small bowel obstructive process, persistent bilateral hydronephrosis and diffuse wall thickening of sigmoid colon/rectum. Dr. Padron consulted by ER physician, recommended NGT, IVF and eval in am. CBC/BMP: 05/25/17 0559 05/25/17 0559 Imaging Last Impressions Abdomen X-Ray 05/26/17 0000 Signed Impressions: Service Date/Time: Friday, May 26, 2017 08:28 - CONCLUSION: Improving bowel gas pattern with less small bowel dilatation on today's exam compared to the target trimmer film from the recent CT scan of the abdomen. There is an NG tube in the stomach. Bernabe Bentley MD Abdomen/Pelvis CT 05/24/172 Signed Impressions: Service Date/Time: Wednesday, May 24, 2017 20:12 - CONCLUSION: 1. Interval development of small bowel ileus characteristic of a small bowel obstructive process. 2. Persistent mild/moderate bilateral hydronephrosis. 3. Diffuse wall thickening and inflammation involving the sigmoid colon and rectum. 4. No other significant change. Noah Knapp MD PE at Discharge GENERAL: Middle-aged male in no acute distress. CARDIOVASCULAR: Regular rate and rhythm. No obvious murmurs to auscultation. No chest tenderness to palpation. RESPIRATORY: No obvious rhonchi or wheezing. Clear to auscultation. Breath sounds equal bilaterally. GASTROINTESTINAL: Abdomen soft, mild tenderness to palpation, +colostomy, nondistended. BS normal. MUSCULOSKELETAL: Extremities without clubbing, cyanosis, or edema. No obvious deformities. NEUROLOGICAL: Awake, alert and oriented x4. No focal neurologic deficits. Moving both upper and lower extremities spontaneously. Pt update on day of discharge Feels much better tolerates food. Stoma with good amount output. wants to go home. Plan for surgery on Thu by Dr Mendez Hospital Course This is a 61-year-old male with a PMH of Colorectal CA, Hepatitis C and Tobacco Abuse who presented with abdominal pain in addition to constipation for approx 4 days. Denies nausea, vomiting, fever or chills. Follows w/ Dr. Mendez as outpatient, states he is scheduled for colonic tumor resection on 06/01/17. Called Dr. Mendez's office today and was told by Dr. Padron to come to the ER. On arrival, BP 133/80, HR 88, O2 sat 95% on RA, Afebrile. WBC 13.2. Chemistry essentially unremarkable except for GFR 60. Lactic Acid 0.8. Case 42. INR 1.1. UA negative. CT Abd/Pelvis w/ small bowel ileus characteristic of small bowel obstructive process, persistent bilateral hydronephrosis and diffuse wall thickening of sigmoid colon/rectum. Dr. Padron consulted by ER physician, recommended NGT, IVF and eval in am. Patient with SBO, colitis c/o abdominal pain and constipation x4 days JUNIOR RECRUITER, CT Abd/Pelvis reviewed consistent with small bowel ileus/obstruction. Follows w/ Dr. Mendez as outpatient, Dr. Padron consulted, recommended NGT, IVF. Keep NPO, convert PO meds to IV. Analgesics/antiemetics as needed. Monitor I/O. Advance diet per surgery recommendation. Seen by Dr Mendez recommends surgery next week. Patient is able to eat, however not much output in the stoma, per Dr Mendez discharge if Output in stoma. patient improved, NGT removed, tolerating diet. Cont treatment w/ Cipro/Flagyl. Patient was discharged in stable condition to f/u as OP with PCP and consultants. Patien tto have surgery as planned by Dr Mtz next week. SBO: c/o abdominal pain and constipation x4 days, CT Abd/Pelvis reviewed consistent with small bowel ileus/obstruction. Follows w/ Dr. Mendez as outpatient, Dr. Padron consulted, recommended NGT, IVF. Keep NPO, convert PO meds to IV. Analgesics/antiemetics as needed. Monitor I/O. Advance diet per surgery recommendation. Seen by Dr Mendez recommends surgery next week. Patient is able to eat, however not much output in the stoma, per Dr Mendez will eval tomorrow if good OP in stoma and improves can be DC tomorrow to have surgery next week. Colitis: CT Abd/Pelvis w/ diffuse wall thickening/inflammation sigmoid colon/ rectum. WBC 13.2. Cont treatment w/ Cipro/Flagyl. Colon CA: Follows shawna/ Dr. Mendez as outpatient, found to have recurrence, scheduled for tumor resection 06/01/17. Consult Dr Mendez. Dehydration: GFR 60, BUN/Creat normal, IVF for hydration, repeat labs in am. Tobacco Abuse: Counselled. NicoDerm/Ativan prn if needed. DVT Prophylaxis: SCD/Teds. Case management consulted for d/c planning as needed. Discussed with the patient, nurse DC plan: Patient is able to eat, however not much output in the stoma, per Dr Mendez will eval tomorrow if good OP in stoma and improves can be DC to have surgery next week. Pt Condition on Discharge: Stable Discharge Disposition: Disch w/ Home Health Serv Discharge Time: > 30 minutes Discharge Instructions DIET: Follow Instructions for: As Tolerated, No Restrictions Activities you can perform: Regular-No Restrictions Follow up Referrals: Colorectal Surgery - 2-3 Days PCP Follow-up - 2-3 Days New Medications: Pantoprazole (Pantoprazole) 40 Mg Tab 40 MG PO DAILY for gerd, #30 TAB Polyethylene Glycol 3350 Powder (Polyethylene Glycol 3350 Powder) 17 Gram Pow 17 GM PO DAILY for Constipation, #30 GM Continued Medications: Hydrocodone-Acetaminophen (Hydrocodone-Acetaminophen) 7.5-325 mg Tab 1 TAB PO Q4H PRN for PAIN PAINEQUAL TO OR <6, #20 TAB (This prescription has been renewed) Sadia Candelario MD May 28, 2017 18:09
[2017-05-28 20:59] VITALS: BP 103/65; PULSE 75; RESP 20; TEMP 98.7; O2SAT 97
[2017-05-29 00:10] VITALS: BP 121/73; PULSE 72; RESP 20; TEMP 97.9; O2SAT 97
[2017-05-29] MEDS: CIPROFLOXACIN 400 MG PREMIX 200 ML IV SCH ×2 (00:36→12:00)
[2017-05-29] MEDS: SODIUM CHLOR 0.9% 1000 ML INJ 1,000 ML IV SCH (01:07)
[2017-05-29] MEDS: MORPHINE SULFATE 4 MG/ML INJ IV PUSH PRN ×3 (02:37→09:02)
[2017-05-29] MEDS: metroNIDAZOLE 500 MG INJ 100 ML IV SCH (06:44)
[2017-05-29 08:00] VITALS: BP 112/73; PULSE 72; RESP 16; TEMP 97; O2SAT 98
[2017-05-29] MEDS: PANTOPRAZOLE SODIUM 40 MG VIAL IV PUSH SCH (09:00)
[2017-05-29] MEDS: PANTOPRAZOLE SOD 40 MG DELAYED RELEASE TAB PO SCH (09:00)
[2017-05-29] MEDS: POLYETHYLENE GLYCOL 17 GM PKG PO SCH (09:01)
[2017-05-29] MEDS: SODIUM CHLORIDE 0.9% FLUSH 10 ML FLUSH IV FLUSH SCH (09:01)
--- NOTE | 2017-05-29 11:18 | HHI.FF ---
Face to Face Verification Diagnosis: (1) Fever (2) Hyponatremia (3) Small bowel obstruction (4) Abdominal pain (5) Abnormal CT of the abdomen (6) Febrile illness (7) Dehydration (8) Colitis (9) SBO (small bowel obstruction) (10) Colon cancer Home Health Nursing Order: Medical education Signs/symptoms of disease process Medication education-adverse effect Nursing assessment with vital signs I have seen patient Jorge Banks on 05/29/17. My clinical findings support the need for the requested home health care services because: Ltd mobility - disease progression I certify that my clinical findings support that this patient is homebound because: Post-op weakness Sadia Candelario MD May 29, 2017 11:18
[2017-05-29 12:00] VITALS: BP 108/70; PULSE 64; RESP 17; TEMP 98.5; O2SAT 98
== END 2017-05-29 14:27 | disposition home health service (06) | DRG 389 ==
LOC: NEPE 16:17 → NEDA 21:36 → N07B 23:10
PROVIDERS: ADMIT Hospitalist; ATTEND Hospitalist
DX: K56.609 Unspecified intestinal obstruction, unspecified as to partial versus complete obstruction (principal); C18.9 Malignant neoplasm of colon, unspecified; N13.30 Unspecified hydronephrosis; E86.0 Dehydration; K52.9 Noninfective gastroenteritis and colitis, unspecified; B19.20 Unspecified viral hepatitis C without hepatic coma; F17.210 Nicotine dependence, cigarettes, uncomplicated; Z93.3 Colostomy status; Z88.0 Allergy status to penicillin; Z23 Encounter for immunization
CPT/HCPCS: 74020; 74177; 80053; 81001; 83605; 83690; 85025; 85610; 85730; 90686; 96361; 96374; 96375; C9113; J0744; J2270; J2405; J7030; Q2038; Q9963; Q9967

== ENCOUNTER 2017-06-02 11:30 | Inpatient (IN) | payer MEDICAID ==
[~2017-06-02] VITALS: Ht 190.5 cm; Wt 63.2 kg
[~2017-06-02 11:30] MED LIST changes: -CIPR-9 PO; -IBUP-1129 PO; -METR-1 PO; +POLY17S PO
[2017-06-02] MEDS: ALVIMOPAN 12 MG CAPSULE - Post-op dosing PO SCH (12:40)
[2017-06-02] MEDS ORDERED: CHLORHEXIDINE GLUCONATE 2 % 1 PACK (2 CLOTHS) TOPICAL PRN (12:45)
[2017-06-02] MEDS ORDERED: POVIDONE IODINE 5% (ANTISEPSIS KIT) 4 APPLICATIONS EACH NARE PRN (12:45)
[2017-06-02] MEDS ORDERED: METOPROLOL TARTRATE 25 MG TAB PO PRN (12:45)
[2017-06-02] MEDS ORDERED: METRONIDAZOLE 500 MG/100 ML ISONTONIC SOLN IV SCH (12:45)
[2017-06-02] MEDS ORDERED: LACTATED RINGER'S 1000 ML IV PRN (12:45)
[2017-06-02] MEDS ORDERED: INSULIN HUMAN REGULAR 1,000 UNITS/10 ML VIAL SQ PRN (12:45)
[2017-06-02] MEDS ORDERED: ceFAZolin 1,000 MG/NS 100 ML IV SCH ×2 (12:45)
[2017-06-02] MEDS ORDERED: ALVIMOPAN 12 MG CAPSULE - On Call PO SCH (12:45)
[2017-06-02] MEDS ORDERED: SODIUM CHLORID 0.9% 500 ML IV PRN (12:45)
--- NOTE | 2017-06-02 12:47 | PD.HP.UP ---
H&P Update Note The Pre-Admit History and Physical Examination regarding the above named patient was reviewed (including, but not limited to, vital signs, heart, lungs, co-morbid conditions), and upon re-examination it is noted that: the patient's condition has not significantly changed since the last examination. John Mendez MD Jun 02, 2017 12:47
[2017-06-02] MEDS ORDERED: BUPIVACAINE HCL PF 0.5% 30 ML VIAL ONE (13:19)
--- NOTE | 2017-06-02 13:20 | RADRPT ---
EXAM DATE/TIME: 06/02/2017 12:17 [facility] COMPARISON: CHEST SINGLE AP, March 28, 2017, 14:14. INDICATIONS : Evaluate for pneumonia, pneumothorax or communicable disease. Preop chest for bowel surgery today, sm oker, no chest surgery MEDICAL HISTORY : Carcinoma, colon. SURGICAL HISTORY : colon resection, ileostomy ENCOUNTER: Initial ACUITY: 1 day PAIN SCORE: Non-responsive. LOCATION: Bilateral chest FINDINGS: A single view of the chest demonstrates the lungs to be symmetrically aerated without evidence of mas s, infiltrate or effusion. The cardiomediastinal contours are unremarkable. Osseous structures are intact. CONCLUSION: No acute disease. Aki Uriostegui Jr., MD on June 02, 2017 at 13:11 Board Certified Radiologist. This report was verified electronically.
[2017-06-02] MEDS ORDERED: ACETAMINOPHEN 1000 MG/100 ML 0 ML IV ONE (13:32)
[2017-06-02] MEDS ORDERED: SUGAMMADEX SODIUM 200 MG/2 ML VIAL IV PUSH ONE ×2 (13:32)
[2017-06-02] MEDS ORDERED: ACETAMINOPHEN 1000 MG/100 ML 100 ML IV ONE (13:56)
[2017-06-02] MEDS ORDERED: FAMOTIDINE 20 MG/2 ML VIAL ONE (14:11)
--- NOTE | 2017-06-02 15:03 | PD.OP ---
Operative Report Date of Surgery: Jun 02, 2017 Preoperative Diagnosis: Rectal mass Postoperative Diagnosis: Same Procedure: Cystoscopy with bilateral ureteral catheter placement Anesthesia: Gen. endotracheal tube Surgeon: Abdi Prabhakar Sales Representatives(s): None Resident Surgeon: None Operation and Findings: 61-year-old male with findings of rectal mass. Patient was to undergo exploratory laparotomy by Dr. Mendez and Dr. Ash. Requests were made for bilateral ureteral catheter placement. Jayne's brought to the operating room and identified by myself as Jorge Hollis. He was placed in the dorsal lithotomy position, prepped and draped in usual sterile fashion, received preprocedure antibiotics and general endotracheal tube anesthesia was administered. 22 Tanzanian cystoscope was inserted in the bladder briggs cystoscopy did not reveal any abnormalities. The left ureteral orifice was identified and the fragility catheter was inserted in the left ureteral orifice without difficulty. This was repeated on the right side without difficulty. A 16 Tanzanian Elliott catheter was then inserted and the catheter attached to the Elliott. The patient tolerated the procedure well. Abdi Prabhakar DO Jun 02, 2017 15:03
[2017-06-02] MEDS ORDERED: POTASSIUM CHLOR 20 MEQ PREMIX 100 ML IV PRN (18:00)
[2017-06-02] MEDS ORDERED: POTASSIUM CHLOR 40 MEQ PREMIX 100 ML IV PRN (18:00)
[2017-06-02] MEDS ORDERED: NALOXONE HCL 0.4 MG/ML AMP IV PUSH PRN (18:00)
[2017-06-02] MEDS ORDERED: Post-op Orders (for Pharmacy) MISC XX ONE (18:00)
[2017-06-02] MEDS ORDERED: ACETAMINOPHEN 325 MG TAB PO PRN (18:00)
[2017-06-02] MEDS ORDERED: ENALAPRILAT 1.25 MG/ML VIAL IV PUSH PRN (18:00)
[2017-06-02] MEDS ORDERED: ENALAPRILAT 2.5 MG/2 ML VIAL IV PUSH PRN (18:00)
[2017-06-02] MEDS ORDERED: BENZOCAINE 6 MG/MENTHOL 10 MG LOZENGE BUCCAL PRN (18:00)
[2017-06-02] MEDS ORDERED: ONDANSETRON HCL 4 MG/2 ML VIAL IV PUSH PRN (18:00)
[2017-06-02] MEDS ORDERED: SODIUM CHLORIDE 0.9% FLUSH 5 ML FLUSH IVF PRN (18:00)
[2017-06-02] MEDS ORDERED: ACETAMINOPHEN/HYDROcodone 325 MG/5 MG TAB PO PRN ×2 (18:00)
[2017-06-02] MEDS ORDERED: KETOROLAC TROMETHAMINE 30 MG/ML (IVP) VIAL IVP PRN (18:00)
[2017-06-02] MEDS ORDERED: *morphine SULFATE 8 MG/ML PERIprocedure ONLY ONE (18:15)
[2017-06-02] MEDS: D5-NS + KCL 20 MEQ INJ 1,000 ML IV SCH ×2 (18:20→23:40)
[2017-06-02] MEDS ORDERED: MORPHINE SULFATE 4 MG/ML INJ ONE (18:42)
[2017-06-02] MEDS: MORPHINE SULFATE 30 MG/30 ML PCA IV SCH (18:52)
[2017-06-02] MEDS: METOCLOPRAMIDE HCL 10 MG/2 ML VIAL IVS SCH (21:00)
[2017-06-02] MEDS: metroNIDAZOLE 500 MG INJ 100 ML IV SCH (22:00)
--- NOTE | 2017-06-02 22:11 | EKG ---
Date Performed: 06/02/2017 Time Performed: 12:01:04 PTAGE: 61 years EKG: Sinus rhythm NORMAL ECG PREVIOUS TRACING : 03/28/2017 11.43 Compared to the previous tracing rate slower DOCTOR: Richard Dumont Interpretating Date/Time 06/02/2017 22:10:13
[2017-06-03] VITALS (10 sets, daily range): BP systolic 104–127; BP diastolic 67–75; PULSE 55–99; RESP 10–28; TEMP 97.3–98.2; O2SAT 98–100
[2017-06-03] MEDS: DEXT 5%-NACL 0.9% 1000 ML INJ 1,000 ML IV SCH ×3 (05:00→21:00)
[2017-06-03] MEDS: metroNIDAZOLE 500 MG INJ 100 ML IV SCH ×2 (05:53→13:17)
[2017-06-03] MEDS ORDERED: CHLORHEXIDINE GLUCONATE 2 % 1 PACK (2 CLOTHS)(extra cloths) TOPICAL PRN (07:45)
[2017-06-03] MEDS: PANTOPRAZOLE SOD 40 MG DELAYED RELEASE TAB PO SCH (07:59)
--- NOTE | 2017-06-03 08:26 | HHI.PR ---
Subjective Remarks C/R Surg POD # 1 afebrile, VSS UO good stents dc'd JUANCARLOS serous Objective - Vital Signs Date Time Temp Pulse Resp B/P (MAP) Pulse Ox O2 Delivery O2 Flow Rate FiO2 06/03/17 06:52 97.3 73 20 119/68 (85) 99 06/03/17 06:00 Nasal Cannula 2 Objective Remarks PE alert Abd - soft, wound dry, stoma pink, min tympany A/P Assessment and Plan Imp: stable post -op OOB decr IVF tx to floor John Mendez MD Jun 03, 2017 08:26
[2017-06-03] MEDS: MORPHINE SULFATE 30 MG/30 ML PCA IV SCH ×2 (08:29→18:39)
[2017-06-03] MEDS: PCA - TOTAL MG MORPHINE DELIVERED PER SHIFT SCH ×3 (08:29→22:00)
[2017-06-03] MEDS: PANTOPRAZOLE SODIUM 40 MG VIAL IVP SCH (08:36)
[2017-06-03] MEDS: METOCLOPRAMIDE HCL 10 MG/2 ML VIAL IVS SCH ×2 (08:36→22:24)
[2017-06-03] MEDS: D5-NS + KCL 20 MEQ INJ 1,000 ML IV SCH ×3 (08:37→23:03)
[2017-06-03] MEDS: SODIUM CHLORIDE 0.9% FLUSH 5 ML FLUSH IVF SCH ×2 (08:37→21:00)
--- NOTE | 2017-06-03 09:10 | MP ---
cc: CHRISTIE GOLDEN M.D. DATE OF SURGERY 06/02/2017 PREOPERATIVE DIAGNOSIS 1. Rectal tumor 2. History of rectal cancer. 3. History of rectal perforation. PROCEDURE Exploratory laparotomy with extensive lysis of adhesions and ascending colectomy. POSTOPERATIVE DIAGNOSIS 1. Obstruction of the distal ileum/cecum. 2. Dense pelvic adhesions with obliteration of normal tissue planes SURGEON Dr. Golden [employer] OPERATOR Dr. Niall Vanegas PROCEDURE The patient was placed in the supine position. After adequate general anesthesia, his legs were placed in the [place] stirrups and supported appropriately. The abdomen and perineum were then prepped with Betadine solution and draped in the usual sterile fashion. With Dr. Vanegas's assistance, the previous midline incision was opened encountering some adhesions to the parietal peritoneum upon entering abdominal cavity. After opening the full length of the incision, the small bowel was densely adherent throughout the abdomen with very thick edematous adhesions. A rather lengthy dissection was necessary to develop the perineal space and mobilize the bowel off the retroperitoneum. There appeared to be chronic obstruction of the distal ileum in the region of the cecum due to fibrotic adhesions. No gross evidence of tumor was identified. The liver palpated as was the gallbladder and was felt to be pretty normal. The small bowel was run from the ligament of Treitz down to this area of obstruction and felt to be chronically dilated, but without evidence of additional masses or obstruction. After mobilizing the bowel out of the pelvis, the colon distal to the colostomy was very atrophic and adherent to the retroperitoneum with very extensive fibrosis. Initially, a plane was developed posterior to the colon and the presacral space was identified, however dissection out laterally was extremely difficult due to this inflammatory response and identification of the ureteral stents and major iliac vessels was difficult. Anteriorly, the plane between the rectum and the bladder, as well as the prostate, appeared to have been totally obliterated. After a rather extensive attempt to mobilize the rectum for a resection, it was felt that this area was really unresectable safely without damaging these major structures. Therefore, it was elected to for leave the rectum intact and address the bowel obstruction. The cecum was mobilized medially by dividing along the white line of Toldt. After full mobilization of the right colon, a point was chosen in the ascending colon where the bowel was softer and more pliable and the bowel divided using a LIZ stapling device. The intervening mesentery was then taken between Melinda's obtaining hemostasis with Vicryl ties. The bowel was then divided in the distal ileum proximal to the area of obstruction again with the LIZ stapling device and the specimen was removed. Bowel continuity was then restored by firing the LIZ stapler across the antimesenteric ends of the bowel closing the enterotomy with a TA-60 stapler. The mesenteric defect closed with a running Vicryl suture and a 3-0 Vicryl crotch suture was placed as well. The bowel was then returned to the abdominal cavity. The whole abdomen was irrigated copiously with normal saline. Adequate hemostasis achieved at all sites. A Bartolo-Vazquez drain was placed down into the presacral space and brought up through a stab wound in the right lower quadrant secured to the skin with a nylon suture. The midline incision was then closed reapproximating the midline fascia with a running #1 PDS suture. The subcu tissues were irrigated copiously and the skin closed with a row of surgical nikhil. The wound area washed with normal saline and dried, sterile dressing of Telfa and gauze applied. The patient tolerated the procedure quite well and was brought to recovery room in stable condition. Sponge and needle counts were correct at the end of the procedure. Finally, the rectum was irrigated with several liters of saline until the effluent was pretty clear using a red rubber catheter. MD SANDER Duarte/KOLBY /8:31 AM /8:52 AM
[2017-06-03 11:37] LABS: AUTOMATED NEUTROPHIL # 12.3 TH/MM3 (1.8-7.7); BASOPHIL % 0.2 % (0.0-2.0); HEMATOCRIT 35.6 % (39.0-51.0); HEMO FLAGS DIFF FINAL; LYMPH % 10.3 % (9.0-44.0); LYMPHOCYTE # 1.7 TH/MM3 (1.0-4.8); MEAN CORPUSCULAR HEMOGLOBIN 28.4 PG (27.0-34.0); MEAN CORPUSCULAR HGB CONC 31.9 % (32.0-36.0); MONO % 12.6 % (0.0-8.0); NEUT % 76.9 % (16.0-70.0); PLATELET COUNT 372 TH/MM3 (150-450); RED BLOOD COUNT 4.01 MIL/MM3 (4.50-5.90); RED CELL DISTRIBUTION WIDTH 13.7 % (11.6-17.2)
[2017-06-03 11:41] LABS: BICARBONATE 25.2 MEQ/L (21.0-32.0); POTASSIUM 4.5 MEQ/L (3.5-5.1)
--- NOTE | 2017-06-03 16:01 | PD.WCN.NOT ---
Wound Consult Description: Consult for New Ostomy Teaching per Dr Mendez. Communicated with: Patient who states the ostomy is not new and he knows how to care for it. Recommendation: When supplies from [facility] are obtained, change out appliance for proper fit as the appliance in use is too large. Additional Information: Ostomy noted to left side abdomen with binder in place with hole cut out. Stoma is red, round, functioning with brown soft effluent noted to pouch and measuring 3/4" and moderately protruding with a crease noted peristomal on abdomen making it difficult for barrier to lay flat. Supplies ordered in size 1 3/4". Ostomy Type: Ileostomy Complete: Other (wafer and pouch ordered in size 1 3/4") Educated patient on: Wafer in use is too large for stoma size. Jennifer Dillard [facility] Jun 03, 2017 16:01
[2017-06-03] MEDS: ALVIMOPAN 12 MG CAPSULE PO SCH (21:00)
[2017-06-03] MEDS: ALVIMOPAN 12 MG CAPSULE - Post-op dosing PO SCH (22:23)
[2017-06-04] VITALS (13 sets, daily range): BP systolic 101–121; BP diastolic 62–71; PULSE 65–100; RESP 12–25; TEMP 97.4–98.5; O2SAT 95–98
[2017-06-04] MEDS: CHLORHEXIDINE GLUCONATE 2 % 1 PACK (2 CLOTHS)(taper/protocol) TOPICAL SCH (04:00)
[2017-06-04] MEDS: D5-NS + KCL 20 MEQ INJ 1,000 ML IV SCH ×3 (04:15→23:12)
[2017-06-04] MEDS: DEXT 5%-NACL 0.9% 1000 ML INJ 1,000 ML IV SCH ×3 (05:00→21:00)
[2017-06-04] MEDS: PCA - TOTAL MG MORPHINE DELIVERED PER SHIFT SCH ×4 (06:00→22:00)
[2017-06-04 07:01] LABS: AUTOMATED NEUTROPHIL # 11.2 TH/MM3 (1.8-7.7); BASOPHIL % 0.2 % (0.0-2.0); EOSINOPHIL % 0.1 % (0.0-4.0); HEMO FLAGS DIFF FINAL; LYMPH % 10.4 % (9.0-44.0); LYMPHOCYTE # 1.5 TH/MM3 (1.0-4.8); MEAN CELL VOLUME 88.2 FL (80.0-100.0); MEAN CORPUSCULAR HEMOGLOBIN 28.6 PG (27.0-34.0); MEAN CORPUSCULAR HGB CONC 32.4 % (32.0-36.0); MONO % 11.2 % (0.0-8.0); NEUT % 78.1 % (16.0-70.0); PLATELET COUNT 424 TH/MM3 (150-450); RED BLOOD COUNT 3.74 MIL/MM3 (4.50-5.90); RED CELL DISTRIBUTION WIDTH 13.5 % (11.6-17.2); WHITE BLOOD COUNT 14.3 TH/MM3 (4.0-11.0)
--- NOTE | 2017-06-04 07:37 | HHI.PR ---
Subjective Remarks C/R Surg POD # 2 afebrile, VSS UO good - bloody JUANCARLOS serous Objective - Vital Signs Date Time Temp Pulse Resp B/P (MAP) Pulse Ox O2 Delivery O2 Flow Rate FiO2 06/04/17 06:00 73 06/04/17 06:00 18 06/04/17 04:00 98.5 103/65 (78) 97 06/03/17 20:00 Nasal Cannula 2.00 Result Diagram: 06/04/17 0443 06/03/17 1030 Objective Remarks PE alert Abd - soft, wound dry, stoma pink, min tympany A/P Assessment and Plan Imp: OOB decr IVF watch maza resp rx John Mendez MD Jun 04, 2017 07:37
[2017-06-04 07:55] LABS: BICARBONATE 30.2 MEQ/L (21.0-32.0); POTASSIUM 4.4 MEQ/L (3.5-5.1)
[2017-06-04] MEDS: PANTOPRAZOLE SODIUM 40 MG VIAL IVP SCH (09:00)
[2017-06-04] MEDS: SODIUM CHLORIDE 0.9% FLUSH 5 ML FLUSH IVF SCH ×2 (09:00→20:07)
[2017-06-04] MEDS: ALVIMOPAN 12 MG CAPSULE PO SCH ×2 (09:00→20:07)
[2017-06-04] MEDS: PANTOPRAZOLE SOD 40 MG DELAYED RELEASE TAB PO SCH (09:16)
[2017-06-04] MEDS: ALVIMOPAN 12 MG CAPSULE - Post-op dosing PO SCH ×2 (09:17→20:07)
[2017-06-04] MEDS: METOCLOPRAMIDE HCL 10 MG/2 ML VIAL IVS SCH ×2 (09:17→20:07)
[2017-06-04] MEDS: MORPHINE SULFATE 30 MG/30 ML PCA IV SCH ×2 (09:47→18:15)
[2017-06-05 00:29] VITALS: BP 102/61; PULSE 80; RESP 16; TEMP 98.4; O2SAT 94
[2017-06-05] MEDS: MORPHINE SULFATE 30 MG/30 ML PCA IV SCH ×3 (03:12→22:31)
[2017-06-05] MEDS: DEXT 5%-NACL 0.9% 1000 ML INJ 1,000 ML IV SCH ×3 (03:44→21:00)
[2017-06-05] MEDS: CHLORHEXIDINE GLUCONATE 2 % 1 PACK (2 CLOTHS)(taper/protocol) TOPICAL SCH (03:44)
[2017-06-05 04:58] VITALS: BP 121/74; PULSE 84; RESP 16; TEMP 97.6; O2SAT 96
[2017-06-05] MEDS: PCA - TOTAL MG MORPHINE DELIVERED PER SHIFT SCH ×3 (05:04→21:13)
[2017-06-05] MEDS: ALVIMOPAN 12 MG CAPSULE PO SCH ×2 (07:57→21:00)
[2017-06-05] MEDS: PANTOPRAZOLE SODIUM 40 MG VIAL IVP SCH (07:58)
[2017-06-05 08:00] VITALS: BP 110/68; PULSE 94; RESP 16; TEMP 98.2; O2SAT 96
[2017-06-05] MEDS: SODIUM CHLORIDE 0.9% FLUSH 5 ML FLUSH IVF SCH ×2 (09:00→21:00)
[2017-06-05] MEDS: ALVIMOPAN 12 MG CAPSULE - Post-op dosing PO SCH ×2 (09:24→21:13)
[2017-06-05] MEDS: PANTOPRAZOLE SOD 40 MG DELAYED RELEASE TAB PO SCH (09:24)
[2017-06-05] MEDS: METOCLOPRAMIDE HCL 10 MG/2 ML VIAL IVS SCH (09:25)
[2017-06-05 12:00] VITALS: BP 108/70; PULSE 72; RESP 17; TEMP 97.6; O2SAT 96
[2017-06-05] MEDS: D5-NS + KCL 20 MEQ INJ 1,000 ML IV SCH (13:53)
[2017-06-05 16:00] VITALS: BP 110/71; PULSE 84; RESP 17; TEMP 98.2; O2SAT 96
--- NOTE | 2017-06-05 16:33 | PD.WCN.NOT ---
Wound Consult Description: Consult for New Ostomy Teaching per Dr Mendez. Communicated with: Patient Recommendation: Change ostomy appliance every 3-5 days and PRN Empty pouch of effluent when 1/3-1/2 full Additional Information: Patient seen on for ostomy and appliance assessment Ostomy Type: Ileostomy Complete: Other (wafer and pouch ordered in size 1 3/4") Educated patient on: Emptying effluent from pouch when 1/3-1/2 full Changing appliance when needed with supplies obtained from [facility] and available in patient room (1 3/4" wafer, ignacia seal, stoma paste) Additional information Stoma is functioning with brown liquid and soft effluent noted in pouch. Wafer and pouch are intact without leaks. Jennifer Dillard [facility] Jun 05, 2017 16:33
[2017-06-05] MEDS ORDERED: METOCLOPRAMIDE HCL 10 MG/2 ML VIAL IVS PRN (18:00)
--- NOTE | 2017-06-05 18:04 | HHI.PR ---
Subjective Remarks C/R Surg POD # 3 afebrile, VSS UO good - clear JUANCARLOS serous, min Objective - Vital Signs Date Time Temp Pulse Resp B/P (MAP) Pulse Ox O2 Delivery O2 Flow Rate FiO2 06/05/17 16:00 98.2 84 17 110/71 (84) 96 06/03/17 20:00 Nasal Cannula 2.00 Result Diagram: 06/04/1744206/04/17442 Objective Remarks PE alert Abd - soft, wound dry, stoma pink, min tympany A/P Assessment and Plan Imp: OOB decr IVF DC maza dc JUANCARLOS drain Path - sq cell cancer ceum/TI, neg nodes, Prob mets John Mendez MD Jun 05, 2017 18:04
[2017-06-05 20:00] VITALS: BP 121/74; PULSE 88; RESP 18; TEMP 96.6; O2SAT 96
[2017-06-05] MEDS ORDERED: IOHEXOL 350 MG/ML 10 ML VIAL (for RAD DIAG) IVCONTRAST ONE (20:36)
--- NOTE | 2017-06-05 21:10 | RADRPT ---
EXAM DATE/TIME: 06/05/2017 20:15 [place] COMPARISON: No previous studies available for comparison. INDICATIONS : Squamous cell carcinoma, evaluate metastatic disease. IV CONTRAST: 65 cc Omnipaque 350 (iohexol) IV RADIATION DOSE: 4.49 CTDIvol (mGy) MEDICAL HISTORY : Carcinoma, colon. Carcinoma, rectal. Hepatitis C. SURGICAL HISTORY : None. ENCOUNTER: Subsequent ACUITY: 1 week PAIN SCALE: 0/10 LOCATION: chest TECHNIQUE: Volumetric scanning of the chest was performed. Using automated exposure control and adjustment of t he mA and/or kV according to patient size, radiation dose was kept as low as reasonably achievable to obtain optimal diagnostic quality images. DICOM format image data is available electronically for review and comparison. Follow-up recommendations for detected pulmonary nodules are based at a minimum on nodule size and pa tient risk factors according to Fleischner Society Guidelines. FINDINGS: There is dependent atelectasis or consolidation in both lungs. Small 3 mm nodule right lower lobe. No definite evidence for metastatic disease. There is no hilar, mediastinal or axillary adenopathy. Mild coronary calcifications. No acute bony ab normalities. Upper abdomen reveals free intraperitoneal air. Patient is reportedly status post recent laparotomy. Visualized liver and spleen unremarkable. Benign-appearing calcification upper pole right kidney. CONCLUSION: 1. No definite metastatic disease to the thorax. Dependent atelectasis in both lungs. 2. Free intraperitoneal air with recent laparotomy. Eugenio Wheatley MD on June 05, 2017 at 21:03 Board Certified Radiologist. This report was verified electronically.
[2017-06-06 00:18] VITALS: BP 134/78; PULSE 86; RESP 18; TEMP 97.6; O2SAT 94
[2017-06-06] MEDS: D5-NS + KCL 20 MEQ INJ 1,000 ML IV SCH (03:28)
[2017-06-06] MEDS: CHLORHEXIDINE GLUCONATE 2 % 1 PACK (2 CLOTHS)(taper/protocol) TOPICAL SCH ×2 (03:28→20:15)
[2017-06-06] MEDS: DEXT 5%-NACL 0.9% 1000 ML INJ 1,000 ML IV SCH (03:28)
[2017-06-06 04:52] VITALS: BP 115/75; PULSE 88; RESP 18; TEMP 97.4; O2SAT 95
[2017-06-06] MEDS: PCA - TOTAL MG MORPHINE DELIVERED PER SHIFT SCH (05:57)
[2017-06-06] MEDS: MORPHINE SULFATE 30 MG/30 ML PCA IV SCH (06:36)
[2017-06-06 08:00] VITALS: BP 120/68; PULSE 90; RESP 17; TEMP 98.1; O2SAT 96
[2017-06-06] MEDS: SODIUM CHLORIDE 0.9% FLUSH 5 ML FLUSH IVF SCH ×3 (08:46→20:15)
[2017-06-06] MEDS: ALVIMOPAN 12 MG CAPSULE PO SCH (08:47)
[2017-06-06] MEDS: ALVIMOPAN 12 MG CAPSULE - Post-op dosing PO SCH ×2 (08:47→20:15)
[2017-06-06] MEDS: PANTOPRAZOLE SODIUM 40 MG VIAL IVP SCH (08:48)
[2017-06-06] MEDS: PANTOPRAZOLE SOD 40 MG DELAYED RELEASE TAB PO SCH (08:48)
[2017-06-06 12:00] VITALS: BP 117/71; PULSE 84; RESP 17; TEMP 98; O2SAT 97
[2017-06-06] MEDS ORDERED: ACETAMINOPHEN/HYDROcodone 325 MG/7.5 MG TAB PO PRN (12:00)
--- NOTE | 2017-06-06 12:00 | HHI.PR ---
Subjective Remarks POD # 4 s/p ascending colectomy Seems fairly comfortable Objective Vital Signs Date Time Temp Pulse Resp B/P (MAP) Pulse Ox O2 Delivery O2 Flow Rate FiO2 06/06/17 08:00 98.1 90 17 120/68 (85) 96 06/06/17 06:36 16 06/06/17 05:57 16 06/06/17 04:52 97.4 88 18 115/75 (88) 95 06/06/17 00:18 97.6 86 18 134/78 (96) 94 06/05/17 22:31 17 06/05/17 21:13 16 06/05/17 20:00 96.6 88 18 121/74 (90) 96 06/05/17 16:00 98.2 84 17 110/71 (84) 96 06/05/17 14:00 20 06/05/17 12:38 16 06/05/17 12:00 97.6 72 17 108/70 (83) 96 I/O 06/05/17 06/05/17 06/05/17 06/06/17 06/06/17 06/06/17 07:00 15:00 23:00 07:00 15:00 23:00 Intake Total 486 ml 1000 ml 1480 ml 678 ml Output Total 2670 ml 2110 ml 1425 ml Balance -2184 ml 1000 ml -630 ml -747 ml Intake Oral 800 ml IV Total 486 ml 1000 ml 680 ml 678 ml Output Urine Total 2650 ml 2100 ml 1425 ml Drainage Total 20 ml 10 ml # Bowel Movements 0 Result Diagram: 06/04/17 0443 06/04/17 0443 Objective Remarks Abdomen soft, nondistended, mildly tender Wound clean Stoma pink, functional Assessment and Plan Assessment and Plan Switch to PO pain meds D/C maza Possible d/c in am Anjana Tesfaye MD Jun 06, 2017 12:00
[2017-06-06] MEDS: ACETAMINOPHEN/HYDROcodone 325 MG/7.5 MG TAB PO PRN ×2 (12:35→19:15)
--- NOTE | 2017-06-06 14:15 | MB ---
cc: KYREE RICHARDSON M.D. DATE OF CONSULTATION: 06/06/2017. REASON FOR CONSULTATION: Oncology was consulted to render opinion regarding a patient with metastatic squamous cell carcinoma. ATTENDING PHYSICIAN: Dr. Mendez. HISTORY OF PRESENT ILLNESS: The patient has is a 61-year-old male who was found to have villoglandular polyps in the rectum in 2011. He was also found to have a large villous adenoma and underwent resection in October of 2011 with a low anterior resection and anastomosis. In the pathology sample, there was low-grade moderately differentiated adenocarcinoma noted. The pathologist commented that it was only noted microscopically. Pathology is stage T2 N0. The patient did not follow up after that. In August of 2016, he presented with abdominal pain and fever. He was noted to have a perforated viscus. He had a sigmoid loop colostomy placed. Biopsy of the rectum again showed recurrent villous adenoma. He saw Dr. Mendez and the plan was to proceed with more definitive resection of the rectum; however, a week before his planned surgery, he was admitted to the hospital with small bowel obstruction. He was brought back to the operating room. He was noted to have a frozen abdomen and the rectum was not resectable. There was obstruction of the cecum and terminal ileum noted. 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 He still has some soreness of his surgical site. He lost about 90 pounds over two years but lately his weight has stabilized. He denies any chest pain or palpitations. He denies any shortness of breath or cough. He denies any nausea or vomiting. Denies any change in urinary habits. PAST MEDICAL HISTORY: 1. Hepatitis C, which has never been treated. 2. Tobacco abuse. 3. Villous adenoma. 4. Rectal adenocarcinoma as above. PAST SURGICAL HISTORY: 1. Excision of a large villous adenoma in September of 2011. 2. In October of 2011, he underwent low anterior resection re-anastomosis. 3. In October of 2011, loop sigmoid colostomy. FAMILY HISTORY: A brother of brain cancer. Mother of stomach cancer. Father of colon cancer in his late 50s. He has four brothers and four sisters and two sisters and two brothers are still alive. He has a son who is healthy. SOCIAL HISTORY: He smoked a pack a day for at least forty years. He denies any alcohol use. He is on disability. ALLERGIES: PENICILLIN. CURRENT MEDICATIONS: 1. 2. Protonix. 3. Morphine MONITORING COORDINATOR. REVIEW OF SYSTEMS: CONSTITUTIONAL: As above. EYES: Negative. ENT: Negative. CARDIOVASCULAR: Denies any chest pressure or palpitations. RESPIRATORY: Denies any shortness of breath or cough. GI: As above. : Negative. MUSCULOSKELETAL: Negative. HEMATOLOGIC: As above. ENDOCRINE: Negative. DERMATOLOGIC: Negative. PSYCHIATRIC: Negative. NEUROLOGIC: Negative. PHYSICAL EXAMINATION: VITAL SIGNS: Temperature is 98.1, blood pressure is 120/68, 02 saturation is 96%. GENERAL: He is alert and oriented times three and in no acute distress. HEAD, EYES, EARS, NOSE, THROAT: Atraumatic, normocephalic. Pupils equal, round, reactive to light. Extraocular muscles intact. No scleral icterus. OROPHARYNX: Dry mucosa. No lesions. NECK: No thyromegaly. No palpable mass. LYMPHATIC: No palpable cervical, clavicular, axillary or inguinal lymph nodes. CARDIOVASCULAR: Regular S1-S2. No murmur. LUNGS: Clear to auscultation bilaterally. ABDOMEN: Surgical site noted. No skin breakdown. No erythema. Still a little tender. Decreased bowel sounds. EXTREMITIES: No cyanosis or clubbing or edema. SKIN: No rash or petechiae. NEUROLOGIC EXAM: Nonfocal. LABORATORY DATA: Reviewed. ASSESSMENT: 1. 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 In 2011, he was found to have a small focus of adenocarcinoma in the villous adenoma. Pathologic stage T2 N0. He had not followed up since then. Earlier this year, he presented with abdominal pain and was found to have a perforated viscus. He had a loop sigmoid colostomy done. He was found to have a recurrent villous adenoma in the rectum but no malignancy noted. He presented again earlier this month with bowel obstruction. He had an exploratory laparotomy and was found to have essentially a frozen abdomen. The rectum was not resectable. There was obstruction in the cecum and terminal ileum. There was a mass which was resected and it turned out to be invasive squamous cell carcinoma in the mesenteric tissue. Eight lymph nodes were negative. Biopsy of the left pelvic sidewall was also negative. This is a very unusual presentation for metastatic squamous cell carcinoma. He had a CT of the chest, which did not show any primary tumor. I could not palpate any neck mass and he has no symptoms to suggest head and neck cancer. I have discussed this with Dr. Mendez and he is going to do an exam of the anal canal just to make he has no anal cancer that has metastasized to the mesenteric tissue. I would recommend getting a PET scan when he has healed from surgery to see if we can find the primary. Further treatment recommendations will depend on whether we can find the primary tumor to see if he has any residual tumor. I plan to present his case at the tumor board for further discussion. 2. Hepatitis C: He has not been treated and his liver enzymes are normal. 3. Tobacco dependence. RECOMMENDATIONS: 1. Discussed pathology and management with the patient. 2. Plan to do a PET scan when he has healed from the surgery. 3. Check HIV status. 4. Dr. Mendez plans to explore the anal canal to make sure there is no primary anal canal cancer. 5. I plan to discuss this case at the tumor board. Thank you Dr. Mendez for asking me to see this patient. MD DHRUV Ramsay/GABRIEL /11:27 AM /1:44 PM [facility]
[2017-06-06 16:00] VITALS: BP 127/81; PULSE 87; RESP 17; TEMP 97.3; O2SAT 97
[2017-06-06 20:00] VITALS: BP 130/79; PULSE 99; RESP 20; TEMP 99.1; O2SAT 95
[2017-06-07] VITALS: BP 112/75; PULSE 86; RESP 20; TEMP 97.3; O2SAT 95
[2017-06-07] MEDS: ACETAMINOPHEN/HYDROcodone 325 MG/7.5 MG TAB PO PRN ×2 (00:49→06:33)
[2017-06-07 08:00] VITALS: BP 117/68; PULSE 74; RESP 17; TEMP 96.9; O2SAT 97
[2017-06-07] MEDS: SODIUM CHLORIDE 0.9% FLUSH 5 ML FLUSH IVF SCH ×2 (08:56→21:00)
[2017-06-07] MEDS: ALVIMOPAN 12 MG CAPSULE - Post-op dosing PO SCH ×2 (08:56→21:02)
[2017-06-07] MEDS: PANTOPRAZOLE SOD 40 MG DELAYED RELEASE TAB PO SCH (08:57)
[2017-06-07] MEDS ORDERED: oxyCODONE/ACETAMINOPHEN 7.5 MG/325 MG TAB PO PRN (11:30)
--- NOTE | 2017-06-07 11:30 | HHI.PR ---
Subjective Remarks POD # 5 s/p ascending colectomy Reporting 'severe' pain, but seems fairly comfortable, sleeping when I entered the room Objective Vital Signs Date Time Temp Pulse Resp B/P (MAP) Pulse Ox O2 Delivery O2 Flow Rate FiO2 06/07/17 08:00 96.9 74 17 117/68 (84) 97 06/07/17 00:00 97.3 86 20 112/75 (87) 95 06/06/17 20:00 99.1 99 20 130/79 (96) 95 06/06/17 16:00 97.3 87 17 127/81 (96) 97 06/06/17 12:00 98.0 84 17 117/71 (86) 97 I/O 06/06/17 06/06/17 06/06/17 06/07/17 06/07/17 06/07/17 07:00 15:00 23:00 07:00 15:00 23:00 Intake Total 678 ml 430 ml 2400 ml 320 ml Output Total 1425 ml 1925 ml 1800 ml Balance -747 ml 430 ml 475 ml -1480 ml Intake Oral 2400 ml 320 ml IV Total 678 ml 430 ml Output Urine Total 1425 ml 1475 ml 1050 ml Stool Total 450 ml 750 ml Result Diagram: 06/04/17 0443 06/04/17 044 Objective Remarks Abdomen soft, nondistended, Wound clean Stoma pink, functional Assessment and Plan Assessment and Plan Reevaluate pain meds Appreciate Dr. Betancourt's assistance Anjana Tesfaye MD Jun 07, 2017 11:30
--- NOTE | 2017-06-07 11:44 | PD.ONC.PN ---
Subjective Subjective Remarks Afebrile overnight. Patient resting in room in nad. reporting some mild abdominal pain. Objective Data Date Time Temp Pulse Resp B/P (MAP) Pulse Ox O2 Delivery O2 Flow Rate FiO2 06/07/17 08:00 96.9 74 17 117/68 (84) 97 06/07/17 00:00 97.3 86 20 112/75 (87) 95 06/06/17 20:00 99.1 99 20 130/79 (96) 95 06/06/17 16:00 97.3 87 17 127/81 (96) 97 06/06/17 12:00 98.0 84 17 117/71 (86) 97 06/07/17 06/07/17 06/07/17 07:00 15:00 23:00 Intake Total 320 ml Output Total 1800 ml Balance -1480 ml Result Diagram: 06/04/17 0443 06/04/17 0443 Laboratory Results Laboratory Tests Test 06/06/17 13:34 HIV (1&2) Antibody NEGATIVE Administered Medications Medications (Trade) Dose Ordered Sig/Denisse Route PRN Reason Start Time Stop Time Status Last Admin Dose Admin Alvimopan (Entereg) 12 mg BID PO 06/03/17 09:00 06/09/17 21:01 06/07/17 08:56 IV Flush (NS Flush) 2 ml BID IVF 06/02/17 21:00 06/07/17 08:56 Pantoprazole Sodium (Protonix) 40 mg DAILY PO 06/03/17 09:00 06/07/17 08:57 Ondansetron HCl (Zofran Inj) 4 mg Q6H PRN IV PUSH NAUSEA 06/02/17 18:00 06/02/17 19:08 Miscellaneous Information Patient in critical care unit? Ass... [id number] .XX 06/03/17 07:45 06/03/17 07:45 Chlorhexidine Gluconate (Chlorhexidine 2% Cloth) 3 pack DAILY@04 TOPICAL 06/04/17 04:00 06/08/17 04:01 06/04/17 04:00 Objective Remarks GENERAL: Middle aged male lying in bed in [facility]. SKIN: Warm and dry. HEAD: Normocephalic. EYES: No injection or drainage. NECK: Supple, trachea midline. CARDIOVASCULAR: Regular rate and rhythm RESPIRATORY: Breath sounds equal bilaterally. No accessory muscle use. GASTROINTESTINAL: Abdomen soft, non-tender, nondistended. EXTREMITIES: No cyanosis MUSCULOSKELETAL: Adequate muscle tone. NEUROLOGICAL: awake and alert, normal speech. 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 In 2011, he was found to have a small focus of adenocarcinoma in the villous adenoma. Pathologic stage T2 N0. He had not followed up since then. --Earlier this year, he presented with abdominal pain and was found to have a perforated viscus. He had a loop sigmoid colostomy done. --was found to have a recurrent villous adenoma in the rectum but no malignancy noted. He presented again earlier this month with bowel obstruction. He had an exploratory laparotomy and was found to have essentially a frozen abdomen. The rectum was not resectable. There was obstruction in the cecum and terminal ileum. There was a mass which was resected and it turned out to be invasive squamous cell carcinoma in the mesenteric tissue. Eight lymph nodes were negative. Biopsy of the left pelvic sidewall was also negative. --This is a very unusual presentation for metastatic squamous cell carcinoma --CT of the chest, which did not show any primary tumor. --could not palpate any neck mass and he has no symptoms to suggest head and neck cancer. Assessment 61-year-old male who was found to have villoglandular polyps in the rectum in 2011. He was also found to have a large villous adenoma and underwent resection in October of 2011 with a low anterior resection and anastomosis. In the pathology sample, there was low-grade moderately differentiated adenocarcinoma noted. The pathologist commented that it was only noted microscopically. Pathology is stage T2 N0. The patient did not follow up after that. In August of 2016, he presented with abdominal pain and fever. He was noted to have a perforated viscus. He had a sigmoid loop colostomy placed. Biopsy of the rectum again showed recurrent villous adenoma. He saw Dr. Mendez and the plan was to proceed with more definitive resection of the rectum; however, a week before his planned surgery, he was admitted to the hospital with small bowel obstruction. He was brought back to the operating room. He was noted to have a frozen abdomen and the rectum was not resectable. There was obstruction of the cecum and terminal ileum noted. 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 He still has some soreness of his surgical site. He lost about 90 pounds over two years but lately his weight has stabilized. h/o Hepatitis C, which has never been treated. Tobacco abuse. Villous adenoma. Rectal adenocarcinoma as above. Plan 1. will obtain outpatient PET scan 2. will present at tumor boards. Attending Statement The exam, history, and the medical decision-making described in the above note were completed with the assistance of the mid-level provider. I reviewed and agree with the findings presented. I attest that I had a [id number] encounter with the patient on the same day, and personally performed and documented my assessment and findings in the medical record. Resting comfortably. HIV test negative. Arrange outpatient oncology f/u. Need outpt PET/CT. Becca Contreras Jun 07, 2017 11:44 Nathaniel Betancourt MD Jun 07, 2017 15:46
[2017-06-07 12:00] VITALS: BP 119/76; PULSE 77; RESP 17; TEMP 97.6; O2SAT 97
[2017-06-07] MEDS: oxyCODONE/ACETAMINOPHEN 7.5 MG/325 MG TAB PO PRN ×2 (12:38→18:20)
[2017-06-07 16:00] VITALS: BP 109/74; PULSE 79; RESP 17; TEMP 97.3; O2SAT 97
[2017-06-07 20:00] VITALS: BP 120/73; PULSE 87; RESP 18; TEMP 97.8; O2SAT 95
[2017-06-07] MEDS: CHLORHEXIDINE GLUCONATE 2 % 1 PACK (2 CLOTHS)(taper/protocol) TOPICAL SCH (21:02)
[2017-06-08] VITALS: BP 96/62; PULSE 84; RESP 18; TEMP 97.8; O2SAT 94
[2017-06-08] MEDS: oxyCODONE/ACETAMINOPHEN 7.5 MG/325 MG TAB PO PRN ×3 (00:05→12:24)
[2017-06-08 08:00] VITALS: BP 118/82; PULSE 109; RESP 16; TEMP 96.8; O2SAT 95
[2017-06-08] MEDS: PANTOPRAZOLE SOD 40 MG DELAYED RELEASE TAB PO SCH (08:41)
[2017-06-08] MEDS: SODIUM CHLORIDE 0.9% FLUSH 5 ML FLUSH IVF SCH (08:41)
[2017-06-08] MEDS: ALVIMOPAN 12 MG CAPSULE - Post-op dosing PO SCH (08:41)
[2017-06-08 12:00] VITALS: BP 105/73; PULSE 95; RESP 17; TEMP 97.9; O2SAT 96
== END 2017-06-08 13:37 | disposition home or self-care (01) | DRG 330 ==
LOC: HSDI 11:30 → HIMW 06-03 06:30 → N07B 06-04 15:31
PROVIDERS: ADMIT Colon & Rectal Surgery; ATTEND Colon & Rectal Surgery
PROC: 0T9880Z Drainage of Bilateral Ureters with Drainage Device, Via Natural or Artificial Opening Endoscopic (ICD-10-PCS; 2017-06-02)
PROC: 0DTK0ZZ Resection of Ascending Colon, Open Approach (ICD-10-PCS; principal; 2017-06-02 14:16)
PROC: 0DNK0ZZ Release Ascending Colon, Open Approach (ICD-10-PCS; 2017-06-02 14:16)
DX: C78.5 Secondary malignant neoplasm of large intestine and rectum (principal); K56.50 Intestinal adhesions [bands], unspecified as to partial versus complete obstruction; C78.6 Secondary malignant neoplasm of retroperitoneum and peritoneum; K63.0 Abscess of intestine; C80.1 Malignant (primary) neoplasm, unspecified; K21.9 Gastro-esophageal reflux disease without esophagitis; B19.20 Unspecified viral hepatitis C without hepatic coma; F17.200 Nicotine dependence, unspecified, uncomplicated; Z85.048 Personal history of other malignant neoplasm of rectum, rectosigmoid junction, and anus; Z80.0 Family history of malignant neoplasm of digestive organs; Z80.8 Family history of malignant neoplasm of other organs or systems; Z88.0 Allergy status to penicillin; Z93.3 Colostomy status
CPT/HCPCS: 71010; 71260; 80048; 82378; 85025; 86703; 86850; 86900; 86901; 87641; 88305; 88307; 88309; 93005; 94150; C9113; J0131; J0690; J2270; J2405; J2765; J3480; J7120; Q9967

== ENCOUNTER 2017-09-25 06:00 | Day surgery (SDC) | payer MEDICAID ==
[~2017-09-25] VITALS: Ht 190.5 cm; Wt 71.4 kg
[2017-09-25 06:45] VITALS: BP 120/70; PULSE 81; RESP 20; TEMP 98.2; O2SAT 95
[2017-09-25] MEDS ORDERED: PERC7.5T13 PO (06:49)
[2017-09-25] MEDS ORDERED: SODIUM CHLOR 0.9% 1000 ML IV SCH (07:00)
[2017-09-25 07:24] LABS: AUTOMATED NEUTROPHIL # 6.9 TH/MM3 (1.8-7.7); BASOPHIL % 0.2 % (0.0-2.0); EOSINOPHIL % 0.5 % (0.0-4.0); HEMATOCRIT 32.2 % (39.0-51.0); HEMOGLOBIN 10.6 GM/DL (13.0-17.0); LYMPH % 19.1 % (9.0-44.0); LYMPHOCYTE # 1.8 TH/MM3 (1.0-4.8); MEAN CORPUSCULAR HEMOGLOBIN 28.4 PG (27.0-34.0); MEAN CORPUSCULAR HGB CONC 33.1 % (32.0-36.0); MEAN PLATELET VOLUME 6.8 FL (7.0-11.0); MONO % 8.3 % (0.0-8.0); MONOCYTE # 0.8 TH/MM3 (0-0.9); NEUT % 71.9 % (16.0-70.0); PLATELET COUNT 446 TH/MM3 (150-450); RED BLOOD COUNT 3.74 MIL/MM3 (4.50-5.90); RED CELL DISTRIBUTION WIDTH 13.3 % (11.6-17.2); WHITE BLOOD COUNT 9.6 TH/MM3 (4.0-11.0)
[2017-09-25 07:32] LABS: INTERNATIONAL NORMALIZED RATIO 1.1 RATIO; PROTHROMBIN TIME - PATIENT 11.4 SEC (9.8-11.6)
[2017-09-25] MEDS ORDERED: LIDOCAINE HCL 1% 20 ML VIAL ONE ×2 (07:44→08:26)
[2017-09-25] MEDS ORDERED: MIDAZOLAM HCL 2 MG/2 ML VIAL ONE ×2 (08:10→08:28)
--- NOTE | 2017-09-25 08:37 | PD.RAD ---
Post CT Procedure Prog Note Pre Procedure Diagnosis: (1) Metastatic squamous cell carcinoma Post Procedure Diagnosis: (1) Metastatic squamous cell carcinoma Procedure Date: Sep 25, 2017 Supervising Radiologist: Sukhwinder Mills Anesthesia: Conscious Sedation Plan of Activity Patient to Unit: ROPU Patient Condition: Good See PACS Report for procedural detail/treatment Sukhwinder Mills MD Sep 25, 2017 08:37
[2017-09-25 08:50] VITALS: BP 103/68; PULSE 73; RESP 20; TEMP 98; O2SAT 90
[2017-09-25 09:05] VITALS: BP 113/72; PULSE 83; RESP 18; O2SAT 97
[2017-09-25 09:35] VITALS: BP 131/86; PULSE 91; RESP 16; O2SAT 96
[2017-09-25 10:05] VITALS: BP 129/80; PULSE 75; RESP 16; O2SAT 95
--- NOTE | 2017-09-25 10:26 | RADRPT ---
EXAM DATE/TIME: 09/25/2017 08:15 [place] COMPARISON: No previous studies available for comparison. INDICATIONS : Sacral lesion. SEDATION TIME: 30 minutes BIOPSY SITE: Left pelvis MEDICATION(S): 1.) 3 mg midazolam (Versed) IV 2.) 150 mcg fentanyl (Sublimaze) IV DEVICE(S): 1.) 12 gauge Bone biopsy needle MEDICAL HISTORY : Carcinoma, colon. Carcinoma, rectal. SURGICAL HISTORY : Colostomy. Ileostomy ENCOUNTER: Initial ACUITY: 1 day PAIN SCORE: 0/10 LOCATION: Left pelvis A total of one core specimen(s) were obtained and sent to the laboratory for pathologic evaluation. PROCEDURE: 1. CT guided pelvic biopsy. 2. Conscious sedation with continuous EKG and oximetry monitoring. Prior to the procedure informed consent was obtained. Any appropriate prior imaging studies were rev iewed. Using automated exposure control and adjustment of the mA and/or kV according to patient size, radiat ion dose was kept as low as reasonably achievable to obtain optimal diagnostic quality images. DICOM format image data is available electronically for review and comparison. The site was prepped in a sterile fashion. Full sterile technique was used, including cap, mask, jack rile gloves and gown and a large sterile sheet. Hand hygiene and 2% chlorhexidine and/or betadine/al cohol prep was utilized per protocol for cutaneous antisepsis. The skin and subcutaneous tissues wer e infiltrated with local anesthetic solution. With CT guidance the previously identified target was localized. Biopsy was performed using the presc ribed needle as above. Adequate hemostasis was obtained with compression at the puncture site. Follow-up CT scan reveals no hemorrhage. The patient tolerated the procedure well and there were no complications. The patient was returned to the Radiology Outpatient Unit in stable condition. CONCLUSION: Uncomplicated CT guided biopsy. Sukhwinder Mills MD on September 25, 2017 at 10:13 Board Certified Radiologist. This report was verified electronically.
== END 2017-09-25 10:41 | disposition home or self-care (01) ==
LOC: HRAD 06:00 → HRIP 06:04 → HRAD 10:41
PROVIDERS: ATTEND Colon & Rectal Surgery
DX: M89.9 Disorder of bone, unspecified (principal); C18.9 Malignant neoplasm of colon, unspecified; C78.5 Secondary malignant neoplasm of large intestine and rectum
CPT/HCPCS: 20220; 77012; 85025; 85610; 85730; 88305; 88311; 88341; 88342; 99152; 99153; J2250; J3010; J7030